=== PATIENT | male | born 1980 | race Caucasian/White ===

== ENCOUNTER 2023-01-17 09:44 | Outpatient (AMB) | payer OTHER, SELFPAY ==
[2023-01-17 09:51] VITALS: BP 134/80; PULSE 102; O2SAT 95; BMI 36.8
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
== END 2023-01-17 10:30 | disposition home or self-care (01) ==
PROVIDERS: PCP Family Medicine; Visit Provider Family Medicine
DX: M48.00 Spinal stenosis, site unspecified (principal); V89.2XXA Person injured in unspecified motor-vehicle accident, traffic, initial encounter; Z87.81 Personal history of (healed) traumatic fracture; F17.200 Nicotine dependence, unspecified, uncomplicated; R91.1 Solitary pulmonary nodule; R59.1 Generalized enlarged lymph nodes; R05.3 Chronic cough
CPT/HCPCS: 99214

== ENCOUNTER → 2023-08-04 11:24 | Outpatient (AMB) | payer OTHER, SELFPAY ==
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
[2023-08-04 11:41] VITALS: BP 132/76; PULSE 77; TEMP 36.8; O2SAT 96; BMI 34.9
== END ==
PROVIDERS: PCP Family Medicine; Visit Provider Physician Assistant
DX: M54.2 Cervicalgia (principal); G44.52 New daily persistent headache (NDPH); H53.8 Other visual disturbances
CPT/HCPCS: 99214

== ENCOUNTER 2023-08-04 12:53 | Outpatient (REF) | payer OTHER, SELFPAY ==
[2023-08-04 14:04] LABS: MANUAL DIFF FLAG NO
[2023-08-04 14:22] LABS: Basophils Absolute Auto 0.1 X10*3/uL (0.0-0.2); Basophils Percent Auto 0.7 % (0-2); Eosinophils Absolute Auto 0.2 X10*3/uL (0.0-0.4); Eosinophils Percent Auto 3.5 % (0-4); Hematocrit 43.7 % (42.0-52.0); Hemoglobin 14.6 g/dl (14.0-18.0); Imm Gran Abs Auto 0.02 X10*3/uL (0.00-0.03); Imm Gran Pct Auto 0.3 % (0.0-0.4); Lymphocytes Absolute Auto 2.9 X10*3/uL (1.2-4.9); Lymphocytes Percent Auto 41.8 % (20-40); Mean Corpuscular HGB Conc 33.4 g/dl (31.0-36.0); Mean Corpuscular Hemoglobin 28.7 pg (27.0-33.0); Mean Corpuscular Volume 85.9 fL (80.0-98.0); Mean Platelet Volume 9.4 fL (9.4-12.4); Monocytes Absolute Auto 0.6 X10*3/uL (0.1-1.2); Neutrophils Absolute Auto 3.1 x10*3/uL (2.0-8.3); Neutrophils Percent Auto 45.7 % (45-73); Platelet Count 332 X10*3/uL (160-400); Red Blood Count 5.09 X10*6/uL (4.60-5.80); Red Cell Distribution Width 15.5 % (11.0-16.0); White Blood Count 6.8 X10*3/uL (4.8-10.8)
[2023-08-04 14:39] LABS: Alanine Aminotransferase 20 U/L (0-40); Albumin Level 4.4 g/dL (3.5-5.0); Alkaline Phosphatase 116 U/L (39-117); Anion Gap 14 (12-20); Aspartate Amino Transferase 17 U/L (5-37); Bilirubin Total 0.4 mg/dL (0.0-1.0); Blood Urea Nitrogen 14 mg/dL (9-16); Calcium 9.3 mg/dL (8.4-10.2); Carbon Dioxide 24 mmol/L (22-29); Chloride 109 mmol/L (96-108); Estimated Glomerular Filt Rate > 60; Glucose Fasting 92 mg/dL (60-99); Magnesium 2.2 mg/dL (1.6-2.6); Potassium 4.1 mmol/L (3.3-5.1); Sodium 143 mmol/L (135-145); Total Protein 7.5 g/dL (6.5-8.0)
[2023-08-04 14:45] LABS: TSH reflex Free T4 1.04 uIU/mL (0.32-4.0)
[2023-08-04 14:54] LABS: Vitamin B12 261 pg/mL (200-900)
[2023-08-05 22:33] LABS: Lyme Abs Screen <0.90 index
== END 2023-08-04 12:54 | disposition home or self-care (01) ==
LOC: HO.WFDLDS 12:53
PROVIDERS: Visit Provider Physician Assistant
DX: G44.52 New daily persistent headache (NDPH) (principal); M54.2 Cervicalgia; H53.8 Other visual disturbances
CPT/HCPCS: 36415; 80053; 82607; 82746; 83735; 84443; 85025; 86617; 86618

== ENCOUNTER 2023-09-07 08:18 | Outpatient (AMB) | payer OTHER, SELFPAY ==
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
[2023-09-07 08:47] VITALS: BP 156/102; PULSE 91; RESP 16; TEMP 36.7; O2SAT 97; BMI 35.6
[2023-09-07 08:59] VITALS: BP 159/88
== END 2023-09-07 09:48 | disposition home or self-care (01) ==
PROVIDERS: PCP Family Medicine; Visit Provider Physician Assistant
DX: R07.89 Other chest pain (principal); F17.290 Nicotine dependence, other tobacco product, uncomplicated; R06.2 Wheezing; E53.8 Deficiency of other specified B group vitamins; G44.52 New daily persistent headache (NDPH)
CPT/HCPCS: 93000; 99214; G2211

== ENCOUNTER 2023-09-23 10:14 | Outpatient (AMB) | payer OTHER, SELFPAY ==
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
[2023-09-23 10:17] VITALS: BP 120/78; PULSE 81; O2SAT 98; BMI 34.8
== END 2023-09-23 11:22 | disposition home or self-care (01) ==
PROVIDERS: PCP Family Medicine; Referring Provider Physician Assistant; Visit Provider Nurse Practitioner Family
DX: R06.00 Dyspnea, unspecified (principal); F17.200 Nicotine dependence, unspecified, uncomplicated; Z91.09 Other allergy status, other than to drugs and biological substances
CPT/HCPCS: 99204

== ENCOUNTER → 2023-09-23 10:14 | Outpatient (BNVA) | payer OTHER, SELFPAY | PROVIDERS: PCP Family Medicine; Referring Provider Physician Assistant; Visit Provider Nurse Practitioner Family ==

== ENCOUNTER 2023-10-05 14:42 | Outpatient (AMB) | payer OTHER, SELFPAY ==
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
[2023-10-05 15:22] VITALS: BP 162/97; PULSE 89; RESP 16; O2SAT 97; BMI 35.2
[2023-10-05 15:33] VITALS: BP 137/100
[2023-10-05 17:00] VITALS: BP 136/82
== END 2023-10-05 16:28 | disposition home or self-care (01) ==
PROVIDERS: PCP Family Medicine; Visit Provider Physician Assistant
DX: G44.52 New daily persistent headache (NDPH) (principal); M54.9 Dorsalgia, unspecified; M54.2 Cervicalgia; R03.0 Elevated blood-pressure reading, without diagnosis of hypertension
CPT/HCPCS: 99214; G2211

== ENCOUNTER 2023-11-08 08:57 | Outpatient (AMB) | payer OTHER, SELFPAY ==
[2023-11-08 09:02] VITALS: BP 126/74; PULSE 85; O2SAT 97; BMI 35.4
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
== END 2023-11-08 09:41 | disposition home or self-care (01) ==
PROVIDERS: PCP Family Medicine; Visit Provider Nurse Practitioner Family
DX: R06.00 Dyspnea, unspecified (principal); F17.200 Nicotine dependence, unspecified, uncomplicated; Z91.09 Other allergy status, other than to drugs and biological substances; R59.1 Generalized enlarged lymph nodes
CPT/HCPCS: 99214

== ENCOUNTER → 2023-11-08 08:57 | Outpatient (BNVA) | payer OTHER, SELFPAY | PROVIDERS: PCP Family Medicine; Visit Provider Nurse Practitioner Family ==

== ENCOUNTER 2023-11-24 08:21 | Outpatient (AMB) | payer OTHER, SELFPAY ==
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
[2023-11-24 08:45] VITALS: BP 128/98; PULSE 81; RESP 16; O2SAT 95; BMI 36.7
[2023-11-24 08:51] VITALS: BP 142/98
== END 2023-11-24 09:27 | disposition home or self-care (01) ==
PROVIDERS: PCP Family Medicine; Visit Provider Physician Assistant
DX: K21.00 Gastro-esophageal reflux disease with esophagitis, without bleeding (principal); I10 Essential (primary) hypertension

== ENCOUNTER → 2023-11-24 08:21 | Outpatient (BNVA) | payer OTHER, SELFPAY | PROVIDERS: PCP Family Medicine; Visit Provider Physician Assistant | DX: K21.00 Gastro-esophageal reflux disease with esophagitis, without bleeding (principal); I10 Essential (primary) hypertension | CPT/HCPCS: 96127 ==

== ENCOUNTER 2023-12-21 07:53 | Outpatient (REF) | payer OTHER, SELFPAY ==
[2023-12-21 12:20] LABS: Anion Gap 11 (12-20); Blood Urea Nitrogen 9 mg/dL (9-16); Calcium 9.4 mg/dL (8.4-10.2); Carbon Dioxide 25 mmol/L (22-29); Chloride 109 mmol/L (96-108); Estimated Glomerular Filt Rate > 60; Glucose Random 91 mg/dL (60-115); Potassium 4.1 mmol/L (3.3-5.1); Sodium 141 mmol/L (135-145)
== END 2023-12-21 07:54 | disposition home or self-care (01) ==
LOC: HO.WFDLDS 07:53
PROVIDERS: Visit Provider Physician Assistant
DX: M05.79 Rheumatoid arthritis with rheumatoid factor of multiple sites without organ or systems involvement (principal); M19.90 Unspecified osteoarthritis, unspecified site; I10 Essential (primary) hypertension
CPT/HCPCS: 36415; 80048

== ENCOUNTER 2023-12-21 08:00 | Outpatient (AMB) | payer OTHER, SELFPAY ==
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
[2023-12-21 08:33] VITALS: BP 120/86; PULSE 67; O2SAT 98; BMI 35.7
== END 2023-12-21 09:16 | disposition home or self-care (01) ==
PROVIDERS: PCP Family Medicine; Visit Provider Physician Assistant
DX: M05.79 Rheumatoid arthritis with rheumatoid factor of multiple sites without organ or systems involvement (principal); M19.90 Unspecified osteoarthritis, unspecified site; I10 Essential (primary) hypertension

== ENCOUNTER 2024-01-25 10:10 | Outpatient (AMB) | payer OTHER, SELFPAY ==
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
[2024-01-25 10:19] VITALS: BP 126/82; PULSE 79; O2SAT 94; BMI 35.2
== END 2024-01-25 10:52 | disposition home or self-care (01) ==
PROVIDERS: PCP Family Medicine; Visit Provider Physician Assistant
DX: M05.79 Rheumatoid arthritis with rheumatoid factor of multiple sites without organ or systems involvement (principal); I10 Essential (primary) hypertension; M19.90 Unspecified osteoarthritis, unspecified site

== ENCOUNTER → 2024-01-25 10:10 | Outpatient (BNVA) | payer OTHER, SELFPAY | PROVIDERS: PCP Family Medicine; Visit Provider Physician Assistant ==

== ENCOUNTER 2024-03-01 13:33 | Outpatient (AMB) | payer OTHER, SELFPAY ==
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
[2024-03-01 13:49] VITALS: BP 126/86; PULSE 65; O2SAT 96; BMI 35.0
== END 2024-03-01 14:11 | disposition home or self-care (01) ==
PROVIDERS: PCP Family Medicine; Visit Provider Physician Assistant
DX: R03.0 Elevated blood-pressure reading, without diagnosis of hypertension (principal); M05.79 Rheumatoid arthritis with rheumatoid factor of multiple sites without organ or systems involvement; M19.90 Unspecified osteoarthritis, unspecified site

== ENCOUNTER → 2024-03-01 13:33 | Outpatient (BNVA) | payer OTHER, SELFPAY | PROVIDERS: PCP Family Medicine; Visit Provider Physician Assistant | DX: R03.0 Elevated blood-pressure reading, without diagnosis of hypertension (principal); M05.79 Rheumatoid arthritis with rheumatoid factor of multiple sites without organ or systems involvement; M19.90 Unspecified osteoarthritis, unspecified site | CPT/HCPCS: 96127 ==

== ENCOUNTER 2024-06-14 15:02 | Outpatient (AMB) | payer OTHER, SELFPAY ==
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
[2024-06-14 15:17] VITALS: BP 138/72; PULSE 83; RESP 16; TEMP 36.7; O2SAT 93; BMI 36.2
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
== END 2024-06-14 15:36 | disposition home or self-care (01) ==
LOC: HO.HMCFM 15:03
PROVIDERS: PCP Physician Assistant; Visit Provider Physician Assistant
DX: R10.31 Right lower quadrant pain (principal); M19.90 Unspecified osteoarthritis, unspecified site; M05.79 Rheumatoid arthritis with rheumatoid factor of multiple sites without organ or systems involvement; K21.00 Gastro-esophageal reflux disease with esophagitis, without bleeding

== ENCOUNTER → 2024-06-14 15:02 | Outpatient (BNVA) | payer OTHER, SELFPAY | PROVIDERS: PCP Physician Assistant; Visit Provider Physician Assistant | DX: Z13.89 Encounter for screening for other disorder (principal) ==

== ENCOUNTER 2024-07-10 08:17 | Outpatient (REF) | payer OTHER, SELFPAY ==
--- OUTSIDE RECORDS SUMMARY | 2024-07-10 08:25 | XMS_ITS | Clinical Summary ---
Author Organization [facility] Address [address] [place] [phone] Phone Care Team Providers Care Supervisor Turkey Farm Name Role Phone Sami Pitt MD Primary [...] this topic Medical Devices Implanted Type Area Mine Geologist Device Identifier Shelf Expiration Date Model / Serial / Lot Spinal Hardware Spinal Hardware N/A: Back Insurance [facility] Care Teams Supervisor Turkey Farm Relationship Specialty Start Date End Date Sami Pitt MD [address] [place] [address] Dr Robert MA PCP - General Family Medicine 01/17/24
[2024-07-10 11:24] LABS: MANUAL DIFF FLAG NO
[2024-07-10 11:30] LABS: Basophils Absolute Auto 0.1 X10*3/uL (0.0-0.2); Basophils Percent Auto 0.8 % (0-2); Eosinophils Absolute Auto 0.3 X10*3/uL (0.0-0.4); Eosinophils Percent Auto 4.4 % (0-4); Hematocrit 43.8 % (42.0-52.0); Hemoglobin 14.8 g/dl (14.0-18.0); Imm Gran Abs Auto 0.03 X10*3/uL (0.00-0.03); Imm Gran Pct Auto 0.4 % (0.0-0.4); Lymphocytes Absolute Auto 2.1 X10*3/uL (1.2-4.9); Lymphocytes Percent Auto 28.5 % (20-40); Mean Corpuscular HGB Conc 33.8 g/dl (31.0-36.0); Mean Corpuscular Hemoglobin 29.8 pg (27.0-33.0); Mean Corpuscular Volume 88.3 fL (80.0-98.0); Mean Platelet Volume 9.6 fL (9.4-12.4); Monocytes Absolute Auto 0.7 X10*3/uL (0.1-1.2); Monocytes Percent Auto 9.1 % (2-11); Neutrophils Absolute Auto 4.1 x10*3/uL (2.0-8.3); Neutrophils Percent Auto 56.8 % (45-73); Platelet Count 263 X10*3/uL (160-400); Red Blood Count 4.96 X10*6/uL (4.60-5.80); Red Cell Distribution Width 14.7 % (11.0-16.0); White Blood Count 7.2 X10*3/uL (4.8-10.8)
[2024-07-10 12:07] LABS: Prostate Specific Antigen Scr 2.32 ng/mL (<0.05-4.0)
[2024-07-10 12:24] LABS: TSH reflex Free T4 1.64 uIU/mL (0.32-4.0)
[2024-07-10 12:30] LABS: Alanine Aminotransferase 39 U/L (0-40); Albumin Level 4.2 g/dL (3.5-5.0); Anion Gap 12 (12-20); Aspartate Amino Transferase 38 U/L (5-37); Bilirubin Total 0.5 mg/dL (0.0-1.0); Blood Urea Nitrogen 10 mg/dL (9-16); Carbon Dioxide 25 mmol/L (22-29); Chloride 108 mmol/L (96-108); Cholesterol 162 mg/dL (<200); Estimated Glomerular Filt Rate > 60; Glucose Random 92 mg/dL (60-115); HDL Cholesterol 28 mg/dL (>40); LDL Cholesterol Calculated 92 mg/dL (<100); Potassium 3.8 mmol/L (3.3-5.1); Sodium 141 mmol/L (135-145); Total Protein 7.2 g/dL (6.5-8.0); Triglycerides 211 mg/dL (<150)
[2024-07-10 12:41] LABS: Alkaline Phosphatase 119 U/L (39-117)
== END 2024-07-10 08:18 | disposition home or self-care (01) ==
LOC: HO.WFDLDS 08:17
PROVIDERS: Visit Provider Physician Assistant
DX: M05.79 Rheumatoid arthritis with rheumatoid factor of multiple sites without organ or systems involvement (principal); M19.90 Unspecified osteoarthritis, unspecified site; I10 Essential (primary) hypertension; R03.0 Elevated blood-pressure reading, without diagnosis of hypertension; Z01.89 Encounter for other specified special examinations; Z12.5 Encounter for screening for malignant neoplasm of prostate
CPT/HCPCS: 36415; 80053; 80061; 84153; 84443; 85025

== ENCOUNTER 2024-07-12 08:12 | Outpatient (AMB) | payer OTHER, SELFPAY ==
--- OUTSIDE RECORDS SUMMARY | 2024-07-12 08:15 | XMS_ITS | Clinical Summary ---
Author Organization [facility] Address [address] [place] [phone] Phone Care Team Providers Care Farmworker Vegetable Name Role Phone Sami Pitt MD Primary [...] this topic Medical Devices Implanted Type Area Manager Education Device Identifier Shelf Expiration Date Model / Serial / Lot Spinal Hardware Spinal Hardware N/A: Back Insurance [facility] Care Teams Farmworker Vegetable Relationship Specialty Start Date End Date Sami Pitt MD [address] [place] [address] Dr Robert MA PCP - General Family Medicine 01/17/24
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
[2024-07-12 08:23] VITALS: BP 134/82; PULSE 86; RESP 18; O2SAT 96; BMI 36.7
== END 2024-07-12 09:00 | disposition home or self-care (01) ==
LOC: HO.HMCFM 08:12
PROVIDERS: PCP Physician Assistant; Visit Provider Physician Assistant
DX: M54.9 Dorsalgia, unspecified (principal); G89.29 Other chronic pain; R20.2 Paresthesia of skin; R10.31 Right lower quadrant pain; E53.8 Deficiency of other specified B group vitamins

== ENCOUNTER → 2024-07-12 08:12 | Outpatient (BNVA) | payer OTHER, SELFPAY | PROVIDERS: PCP Physician Assistant; Visit Provider Physician Assistant ==

== ENCOUNTER 2024-07-27 08:19 | Outpatient (REF) | payer OTHER, SELFPAY ==
--- NOTE | ~2024-07-27 | US_ITS ---
EXAMINATION: US ABDOMEN HISTORY: R10.31 - Right lower quadrant pain TECHNIQUE: Real-time grayscale ultrasound imaging of the abdomen was performed and images were reviewed. COMPARISON: There are no prior studies available for comparison. FINDINGS: Liver: The right lobe of the liver measures 21.7 cm in size. The left lobe of the liver measures 15.6 cm in size. The liver demonstrates increased echotexture, consistent with steatosis. No focal mass or intrahepatic biliary ductal dilatation is identified. There is normal hepatopedal flow in the portal vein. Gallbladder and biliary tree: The gallbladder is unremarkable, without evidence of calculi, wall thickening, or pericholecystic fluid. There is no sonographic Martinez sign. The common bile duct is not visualized. Kidneys: The right kidney measures 11.5 cm in length. The left kidney measures 12.6 cm in length. The kidneys are unremarkable, without evidence of masses, hydronephrosis, or calculi. Pancreas: The pancreas is obscured by bowel gas. Spleen: The spleen is enlarged, measuring 13.5 cm in length. Abdominal aorta and inferior vena cava: The visualized portions of the abdominal aorta and inferior vena cava are normal in caliber. There is no free fluid in the abdomen. The patient reports pain inferior to the umbilicus. No sonographic abnormality is seen in this region. US/US abdomen complete IMPRESSION: Hepatosplenomegaly and hepatic steatosis. No sonographic abnormality is seen inferior to the umbilicus where the patient reports pain. If further imaging is desired, CT could be performed. Electronically signed by: Janes Tate MD 07/27/2024 08:54 AM EDT
--- OUTSIDE RECORDS SUMMARY | 2024-07-27 08:21 | XMS_ITS | Clinical Summary ---
Author Organization [facility] Address [address] [place] [phone] Phone Care Team Providers Care Chlorine Cell Tender Name Role Phone Sami Pitt MD Primary [...] this topic Medical Devices Implanted Type Area Boat Garnisher Device Identifier Shelf Expiration Date Model / Serial / Lot Spinal Hardware Spinal Hardware N/A: Back Insurance [facility] Care Teams Chlorine Cell Tender Relationship Specialty Start Date End Date Sami Pitt MD [address] [place] [address] Dr Robert MA PCP - General Family Medicine 01/17/24
== END 2024-07-27 08:20 | disposition home or self-care (01) ==
LOC: HO.US 08:19
PROVIDERS: PCP Family Medicine; Visit Provider Physician Assistant
DX: R10.31 Right lower quadrant pain (principal); K21.00 Gastro-esophageal reflux disease with esophagitis, without bleeding
CPT/HCPCS: 76700

== ENCOUNTER → 2024-07-27 08:21 | Outpatient (BNV) | payer OTHER, SELFPAY | PROVIDERS: PCP Family Medicine; Visit Provider Radiology Diagnostic Radiology | DX: R16.2 Hepatomegaly with splenomegaly, not elsewhere classified (principal); K76.0 Fatty (change of) liver, not elsewhere classified | CPT/HCPCS: 76700 ==

== ENCOUNTER 2024-08-21 13:15 | Outpatient (AMB) | payer OTHER, SELFPAY ==
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
[2024-08-21 13:30] VITALS: BP 138/82; PULSE 77; BMI 35.8
--- OUTSIDE RECORDS SUMMARY | 2024-08-21 15:11 | XMS_ITS | Clinical Summary ---
Author Organization [facility] Address [address] [place] [phone] Phone Care Team Providers Care Manager Coding Name Role Phone Sami Pitt MD Primary [...] 74 01/17/2024 9:37 AM EST Temperature 36.7 C (98.1 F) 01/17/2024 9:37 AM EST Respiratory Rate 16 01/17/2024 9:30 AM EST [...] this topic Medical Devices Implanted Type Area Soda Tester Device Identifier Shelf Expiration Date Model / Serial / Lot Spinal Hardware Spinal Hardware N/A: Back Insurance [facility] Care Teams Manager Coding Relationship Specialty Start Date End Date Sami Pitt MD [address] [place] [address] Dr Robert MA PCP - General Family Medicine 01/17/24
== END 2024-08-21 13:51 | disposition home or self-care (01) ==
LOC: HO.HGS 13:16
PROVIDERS: PCP Physician Assistant; Referring Provider Physician Assistant; Visit Provider Surgery
DX: R10.31 Right lower quadrant pain (principal)
CPT/HCPCS: 99204

== ENCOUNTER 2024-09-06 11:10 | Outpatient (REF) | payer OTHER, SELFPAY ==
--- OUTSIDE RECORDS SUMMARY | 2024-09-06 11:55 | XMS_ITS | Clinical Summary ---
Author Organization [facility] Address [address] [place] [phone] Phone Care Team Providers Care Steel Grinder Name Role Phone Sami Pitt MD Primary [...] 5 Years) and At-Risk Patients (6 to 49 Years) (1 of 2 - PCV) 1997 COVID-19 Vaccine (3 - Modern a risk series) 04/03/2021 03/06/2021, 02/04/2021 Cholesterol Screening (Lipid Panel) 12/30/2023 Colorectal Cancer Screening: Colonoscopy 12/30/2023 Depression Screening 12/30/2023 HIV Screening 12/30/2023 Hepatitis C Screening 12/30/2023 Social Influencers of Health Screening 12/30/2023 Influenza Vaccine (#1) 2024 HIB Vaccines Aged Out No longer [...] this topic Medical Devices Implanted Type Area Director Of State Device Identifier Shelf Expiration Date Model / Serial / Lot Spinal Hardware Spinal Hardware N/A: Back Insurance [facility] Care Teams Steel Grinder Relationship Specialty Start Date End Date Sami Pitt MD [address] [place] [address] Dr Robert MA PCP - General Family Medicine 01/17/24
[2024-09-06 16:55] LABS: Anion Gap 11 (12-20); Blood Urea Nitrogen 10 mg/dL (9-16); Calcium 9.0 mg/dL (8.4-10.2); Carbon Dioxide 25 mmol/L (22-29); Chloride 106 mmol/L (96-108); Estimated Glomerular Filt Rate > 60; Iron 81 mcg/dL (45-160); Magnesium 2.3 mg/dL (1.6-2.6); Percent Iron Saturation 22 % (15-50); Potassium 3.9 mmol/L (3.3-5.1); Sodium 138 mmol/L (135-145); Total Iron Binding Capacity 369 mcg/dL (228-428); Unsaturated Iron Binding 288 ug/dL
[2024-09-06 16:56] LABS: Hemoglobin A1C 141.7846 umol/L; Total Hemoglobin (HGBA1C) 4364.0799 umol/L
[2024-09-06 16:58] LABS: Ferritin 79 ng/mL (20-250)
[2024-09-06 17:14] LABS: Folate 8.7 ng/mL (> or = 4.0); Vitamin B12 294 pg/mL (200-900)
[2024-09-07 10:58] LABS: Lyme Abs Screen <0.90 index
== END 2024-09-06 11:11 | disposition home or self-care (01) ==
LOC: HO.WFDLDS 11:10
PROVIDERS: Visit Provider Physician Assistant
DX: R73.01 Impaired fasting glucose (principal); R20.2 Paresthesia of skin; M54.9 Dorsalgia, unspecified; G89.29 Other chronic pain; E53.8 Deficiency of other specified B group vitamins; R10.31 Right lower quadrant pain
CPT/HCPCS: 36415; 80048; 82607; 82728; 82746; 83036; 83540; 83735; 86617; 86618

== ENCOUNTER 2024-09-18 10:09 | Outpatient (REF) | payer OTHER, SELFPAY ==
--- NOTE | 2024-09-18 10:12 | EMG_ITS ---
Please see the attached neurophysiology report MTDD
--- OUTSIDE RECORDS SUMMARY | 2024-09-18 11:11 | XMS_ITS | Clinical Summary ---
Author Organization [facility] Address [address] [place] [phone] Phone Care Team Providers Care Slasher Tender Name Role Phone Sami Pitt MD Primary Care Provider [phone] Allergies Active Allergy Reactions Criticality Noted Date [...] Panel) 12/30/2023 Colorectal Cancer Screening: Colonoscopy 12/30/2023 HIV Screening 12/30/2023 Hepatitis C Screening 12/30/2023 Social Influencers of Health Screening 12/30/2023 Depression Screening 02/29/2024 Influenza Vaccine (#1) 2024 HIB Vaccines Aged [...] this topic Medical Devices Implanted Type Area Drafter (Cad) Electronic Device Identifier Shelf Expiration Date Model / Serial / Lot Spinal Hardware Spinal Hardware N/A: Back Insurance [facility] Care Teams Slasher Tender Relationship Specialty Start Date End Date Sami Pitt MD [address] [place] [address] Dr Robert MA PCP - General Family Medicine 01/17/24
== END 2024-09-18 10:10 | disposition home or self-care (01) ==
LOC: HO.NEURO 10:09
PROVIDERS: PCP Physician Assistant; Visit Provider Physician Assistant
DX: R20.2 Paresthesia of skin (principal); M54.9 Dorsalgia, unspecified; G89.29 Other chronic pain; G62.9 Polyneuropathy, unspecified
CPT/HCPCS: 95886; 95913

== ENCOUNTER → 2024-09-18 10:12 | Outpatient (BNV) | payer OTHER, SELFPAY | PROVIDERS: PCP Physician Assistant; Visit Provider Psychiatry & Neurology Neurology | DX: G62.89 Other specified polyneuropathies (principal) | CPT/HCPCS: 95886; 95911 ==

== ENCOUNTER 2024-10-16 07:28 | Outpatient (REF) | payer OTHER, SELFPAY ==
--- NOTE | ~2024-10-16 | CT_ITS ---
CLINICAL HISTORY: R59.1 - Generalized enlarged lymph nodes CT chest with contrast Comparison: None provided Findings: The heart is normal size. The visualized thyroid is within normal limits. 16 mm right lower paratracheal lymph node. 8 mm right hilar lymph node. Nonenlarged bilateral axillary lymph nodes. No consolidation or effusion. No pneumothorax. Hepatic steatosis. No acute findings in the visualized upper abdomen. Posterior fusion from T6 through T8. No acute fracture. IMPRESSION: 1. No acute thoracic findings. 2. 16 mm right lower paratracheal lymph node and 8 mm right hilar lymph node, nonspecific. This document has been electronically signed by: Cyn Jansen MD on 10/17/2024 19:54:41
--- OUTSIDE RECORDS SUMMARY | 2024-10-16 07:29 | XMS_ITS | Clinical Summary ---
Author Organization [facility] Address [address] [place] [phone] Phone Care Team Providers Care Career Placement Services Counselor Name Role Phone Sami Pitt MD Primary [...] topic Medical Devices Implanted Type Area Director Media Device Identifier Shelf Expiration Date Model / Serial / Lot Spinal Hardware Spinal Hardware N/A: Back Insurance [facility] Care Teams Career Placement Services Counselor Relationship Specialty Start Date End Date Sami Pitt MD [address] [place] [address] Dr Robert MA PCP - General Family Medicine 01/17/24
[2024-10-16] MEDS: iohexoL 350 MG/ML 100 ML INFUS..BTL IV (08:19)
== END 2024-10-16 07:29 | disposition home or self-care (01) ==
LOC: HO.CT 07:28
PROVIDERS: PCP Physician Assistant; Visit Provider Nurse Practitioner Family
DX: R59.1 Generalized enlarged lymph nodes (principal)
CPT/HCPCS: 71260; Q9967

== ENCOUNTER → 2024-10-16 07:36 | Outpatient (BNV) | payer OTHER, SELFPAY | PROVIDERS: PCP Physician Assistant; Visit Provider Radiology Diagnostic Radiology | DX: R59.1 Generalized enlarged lymph nodes (principal) | CPT/HCPCS: 71260 ==

== ENCOUNTER 2024-10-18 08:28 | Outpatient (AMB) | payer OTHER, SELFPAY ==
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
[2024-10-18 08:36] VITALS: BP 141/83; PULSE 83; RESP 16; TEMP 36.6; O2SAT 95; BMI 35.9
[2024-10-18 08:43] VITALS: BP 141/77
--- OUTSIDE RECORDS SUMMARY | 2024-10-18 09:21 | XMS_ITS | Clinical Summary ---
Author Organization [facility] Address [address] [place] [phone] Phone Care Team Providers Care Engraver Jewelry Name Role Phone Sami Pitt MD Primary [...] this topic Medical Devices Implanted Type Area Wood Lather Device Identifier Shelf Expiration Date Model / Serial / Lot Spinal Hardware Spinal Hardware N/A: Back Insurance [facility] Care Teams Engraver Jewelry Relationship Specialty Start Date End Date Sami Pitt MD [address] [place] [address] Dr Robert MA PCP - General Family Medicine 01/17/24
== END 2024-10-18 09:15 | disposition home or self-care (01) ==
LOC: HO.HMCFM 08:28
PROVIDERS: PCP Physician Assistant; Visit Provider Physician Assistant
DX: M54.9 Dorsalgia, unspecified (principal); M05.79 Rheumatoid arthritis with rheumatoid factor of multiple sites without organ or systems involvement; M19.90 Unspecified osteoarthritis, unspecified site; R03.0 Elevated blood-pressure reading, without diagnosis of hypertension; K21.00 Gastro-esophageal reflux disease with esophagitis, without bleeding

== ENCOUNTER 2024-10-18 08:28 | Outpatient (REF) | payer OTHER, SELFPAY ==
[2024-10-18 11:31] LABS: MANUAL DIFF FLAG NO
[2024-10-18 11:41] LABS: Hematocrit 46.0 % (42.0-52.0); Hemoglobin 15.4 g/dl (14.0-18.0); Imm Gran Abs Auto 0.03 X10*3/uL (0.00-0.03); Imm Gran Pct Auto 0.4 % (0.0-0.4); Lymphocytes Absolute Auto 2.3 X10*3/uL (1.2-4.9); Mean Corpuscular HGB Conc 33.5 g/dl (31.0-36.0); Mean Corpuscular Hemoglobin 29.4 pg (27.0-33.0); Mean Corpuscular Volume 87.8 fL (80.0-98.0); NRBC Abs Auto 0.000 X10*3/uL (0.0-0.012); NRBC Pct Auto 0.0 /100WBC (0.0-0.2); Platelet Count 318 X10*3/uL (160-400); Red Blood Count 5.24 X10*6/uL (4.60-5.80); White Blood Count 7.9 X10*3/uL (4.8-10.8)
[2024-10-18 12:16] LABS: Alanine Aminotransferase 37 U/L (0-40); Albumin Level 4.6 g/dL (3.5-5.0); Alkaline Phosphatase 131 U/L (39-117); Anion Gap 10 (12-20); Aspartate Amino Transferase 29 U/L (5-37); Blood Urea Nitrogen 10 mg/dL (9-16); Calcium 9.2 mg/dL (8.4-10.2); Carbon Dioxide 27 mmol/L (22-29); Chloride 106 mmol/L (96-108); Cholesterol 187 mg/dL (<200); Estimated Glomerular Filt Rate > 60; HDL Cholesterol 27 mg/dL (>40); Potassium 4.2 mmol/L (3.3-5.1); Sodium 139 mmol/L (135-145); Total Protein 7.7 g/dL (6.5-8.0); Triglycerides 270 mg/dL (<150)
== END 2024-10-18 08:29 | disposition home or self-care (01) ==
LOC: HO.WFDLDS 08:28
PROVIDERS: Nurse Practitioner Family; PCP Physician Assistant; Visit Provider Physician Assistant
DX: K21.00 Gastro-esophageal reflux disease with esophagitis, without bleeding (principal); M05.79 Rheumatoid arthritis with rheumatoid factor of multiple sites without organ or systems involvement; M19.90 Unspecified osteoarthritis, unspecified site; M54.9 Dorsalgia, unspecified; R03.0 Elevated blood-pressure reading, without diagnosis of hypertension; Z12.5 Encounter for screening for malignant neoplasm of prostate; Z91.09 Other allergy status, other than to drugs and biological substances
CPT/HCPCS: 36415; 80053; 80061; 82785; 84153; 84443; 85025

== ENCOUNTER 2024-10-26 07:49 | Outpatient (AMB) | payer OTHER, SELFPAY ==
--- OUTSIDE RECORDS SUMMARY | 2024-10-26 07:52 | XMS_ITS | Clinical Summary ---
Author Organization [facility] Address [address] [place] [phone] Phone Care Team Providers Care Office Supervisor Name Role Phone Sami Pitt MD Primary [...] this topic Medical Devices Implanted Type Area Window Draper Device Identifier Shelf Expiration Date Model / Serial / Lot Spinal Hardware Spinal Hardware N/A: Back Insurance [facility] Care Teams Office Supervisor Relationship Specialty Start Date End Date Sami Pitt MD [address] [place] [address] Dr Robert MA PCP - General Family Medicine 01/17/24
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
[2024-10-26 08:09] VITALS: BP 136/92; PULSE 74; O2SAT 98; BMI 36.5
== END 2024-10-26 08:45 | disposition home or self-care (01) ==
LOC: HO.HGI 07:50
PROVIDERS: PCP Physician Assistant; Visit Provider Nurse Practitioner Family
DX: Z01.818 Encounter for other preprocedural examination (principal); Z12.11 Encounter for screening for malignant neoplasm of colon; K21.00 Gastro-esophageal reflux disease with esophagitis, without bleeding; R10.13 Epigastric pain; R14.0 Abdominal distension (gaseous); R10.9 Unspecified abdominal pain
CPT/HCPCS: 99204

== ENCOUNTER 2024-10-26 07:49 | Outpatient (REF) | payer OTHER, SELFPAY ==
[2024-10-26 09:48] LABS: Alanine Aminotransferase 40 U/L (0-40); Albumin Level 4.5 g/dL (3.5-5.0); Alkaline Phosphatase 138 U/L (39-117); Aspartate Amino Transferase 32 U/L (5-37); Gamma Glutamyl Transpeptidase 56 U/L (11-51); Lipase 38 U/L (8-78); Total Protein 7.3 g/dL (6.5-8.0)
[2024-10-26 10:46] LABS: Parathyroid Hormone Intact 127.9 pg/mL (8.7-77.1)
[2024-10-30 15:48] LABS: Vitamin D 25-OH, D2 <4 ng/mL; Vitamin D 25-OH, D3 29 ng/mL; Vitamin D 25-OH, Total 29 ng/mL (30-100)
[2024-10-31 22:08] LABS: Transglutaminase Ab IgG <1.0 U/mL
== END 2024-10-26 07:50 | disposition home or self-care (01) ==
LOC: HO.LAB 07:49
PROVIDERS: Absent Provider Physician Assistant; PCP Physician Assistant; Visit Provider Nurse Practitioner Family
DX: Z12.11 Encounter for screening for malignant neoplasm of colon (principal); K21.00 Gastro-esophageal reflux disease with esophagitis, without bleeding; R10.13 Epigastric pain; R14.0 Abdominal distension (gaseous); R94.5 Abnormal results of liver function studies; E55.9 Vitamin D deficiency, unspecified
CPT/HCPCS: 36415; 80076; 82306; 82977; 83013; 83690; 83970; 84075; 86364

== ENCOUNTER 2024-11-14 09:20 | Outpatient (AMB) | payer OTHER, SELFPAY ==
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
[2024-11-14 09:28] VITALS: BP 148/90; PULSE 73; RESP 16; TEMP 36.6; O2SAT 97; BMI 36.2
[2024-11-14 09:37] VITALS: BP 140/88
--- OUTSIDE RECORDS SUMMARY | 2024-11-14 11:01 | XMS_ITS | Clinical Summary ---
Author Organization [facility] Address [address] [place] [phone] Phone Care Team Providers Care Biochemistry Professor Name Role Phone Sami Pitt MD Primary [...] this topic Medical Devices Implanted Type Area Purification Director Device Identifier Shelf Expiration Date Model / Serial / Lot Spinal Hardware Spinal Hardware N/A: Back Insurance [facility] Care Teams Biochemistry Professor Relationship Specialty Start Date End Date Sami Pitt MD [address] [place] [address] Dr Robert MA PCP - General Family Medicine 01/17/24
== END 2024-11-14 10:09 | disposition home or self-care (01) ==
LOC: HO.HMCFM 09:21
PROVIDERS: PCP Physician Assistant; Visit Provider Physician Assistant
DX: M25.511 Pain in right shoulder (principal); M05.79 Rheumatoid arthritis with rheumatoid factor of multiple sites without organ or systems involvement; E21.3 Hyperparathyroidism, unspecified; R59.0 Localized enlarged lymph nodes; I10 Essential (primary) hypertension

== ENCOUNTER 2024-11-26 11:04 | Outpatient (AMB) | payer OTHER, SELFPAY ==
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
[2024-11-26 11:17] VITALS: BP 122/64; PULSE 85; O2SAT 97; BMI 36.5
--- OUTSIDE RECORDS SUMMARY | 2024-11-26 12:35 | XMS_ITS | Clinical Summary ---
Author Organization [facility] Address [address] [place] [phone] Phone Care Team Providers Care Correctional Nurse Name Role Phone Sami Pitt MD Primary [...] this topic Medical Devices Implanted Type Area Hospitality Manager Device Identifier Shelf Expiration Date Model / Serial / Lot Spinal Hardware Spinal Hardware N/A: Back Insurance [facility] Care Teams Correctional Nurse Relationship Specialty Start Date End Date Sami Pitt MD [address] [place] [address] Dr Robert MA PCP - General Family Medicine 01/17/24
== END 2024-11-26 13:45 | disposition home or self-care (01) ==
LOC: HO.HPS 11:05
PROVIDERS: PCP Physician Assistant; Visit Provider Nurse Practitioner Family
DX: R06.00 Dyspnea, unspecified (principal); Z91.09 Other allergy status, other than to drugs and biological substances; R59.0 Localized enlarged lymph nodes; Z87.891 Personal history of nicotine dependence
CPT/HCPCS: 99214

== ENCOUNTER 2024-11-29 06:39 | Day surgery (SDC) | payer OTHER, SELFPAY ==
--- OUTSIDE RECORDS SUMMARY | 2024-11-19 13:15 | XMS_ITS | Clinical Summary ---
Author Organization [facility] Address [address] [place] [phone] Phone Care Team Providers Care Towel Hemmer Name Role Phone Sami Pitt MD Primary Care Provider [phone] Allergies Active Allergy Reactions Criticality Noted Date [...] this topic Medical Devices Implanted Type Area Blood Bank Business Manager Device Identifier Shelf Expiration Date Model / Serial / Lot Spinal Hardware Spinal Hardware N/A: Back Insurance [facility] Care Teams Towel Hemmer Relationship Specialty Start Date End Date Sami Pitt MD [address] [place] [address] Dr Robert MA PCP - General Family Medicine 01/17/24
[2024-11-27 14:46] VITALS: BMI 36.5
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
[2024-11-29 07:00] VITALS: BP 141/88; PULSE 78; RESP 14; TEMP 36.7; O2SAT 97; BMI 35.2
[2024-11-29] MEDS: Lactated Ringers 1,000 ML 100 ML IVCONT (07:09)
--- NOTE | 2024-11-29 08:27 | P.OPN-COLO_ITS ---
Colonoscopy Operative Note Operative Note Date of Service: 11/29/24 Narrative: Operative Information Procedure Description: EGD, Colonoscopy Indication: GERD and abdominal pain Anesthesia: MAC FLEXIBLE TRANSORAL UPPER GASTROINTESTINAL ENDOSCOPY AND COLONOSCOPY PROCEDURE NOTE UPPER ENDOSCOPY Consent: Indications for the procedure and potential complications of bleeding, perforation, reaction to medications and missed diagnosis were discussed with the patient and informed consent was obtained. Instrument: Olympus GIF H 190 J mid size upper endoscope Monitoring: Vital signs and clinical assessment, continuous EKG monitoring, Pulse oximetry, Carbon Dioxide monitoring and blood pressure monitoring were done throughout the procedure. Procedure: The patient was placed in the left lateral decubitis position and pre-procedure medications were administered and a bite block was placed. The endoscope was inserted into the mouth and advanced under direct vision to the third part of duodenum. A careful inspection was made as the upper endoscope was withdrawn including a retroflexed examination of the proximal stomach; Findings and interventions are described below. Findings: Larynx:normal Esophagus: GE junction at 42 cm, diaphragm hiatus at 44 cm, consistent with 2 cm sliding hiatal hernia with mild esophagitis noted at GEJ, bx taken from distal and proximal esophagus and balloon dilation done at UES and LES to 19 mm without tears seen Stomach: PAtchy erythema with erosions holly around pylorus area. Biopsies were obtained. Grade 2 flap valve on retroflexed examination of the cardia. Duodenum: bulbar duodenitis, bx taken Intervention: Biopsies as noted above, balloon dilation -no wire COLONOSCOPY Instrument: Olympus variable stiffness pediatric scope 190L--swapped to adult scope due to looping Colonoscopy Monitoring: Vital signs and clinical assessment, continuous EKG monitoring, Pulse oximetry, Carbon Dioxide monitoring and blood pressure monitoring were done throughout the procedure. Colon withdrawal time was 12 minutes. Procedure: The patient was placed in the left lateral decubitis position and pre-procedure medications were administered. After a digital rectal examination of the ano-rectum, the video colonoscope was inserted into the rectum and advanced through the colon to the cecum/TI. The colonoscope was slowly withdrawn in a retrograde panoramic fashion and the colon mucosa was carefully examined including a retroflexed view of the rectum. Findings and interventions are described below. Procedure Difficulty:moderate Findings: Terminal Ileum- erosive ileitis noted, moderate, bx taken Cecum:normal, bx taken Ascending Colon: normal, bx taken Transverse Colon -normal Descending Colon:normal Sigmoid Colon: normal, bx taken Rectum: Retroflexion with small internal hemorrhoids, grade I, bx taken Anorectum - normal Colon preparation: [place] Bowel Preparation Scale Right colon; 2 Transverse colon: 2 Left colon; 1-2 (0 = Unprepared colon segment with mucosa not seen due to solid stool that cannot be cleared. 1 = Portion of mucosa of the colon segment seen, but other areas of the colon segment not well seen due to staining, residual stool and/or opaque liquid. 2 = Minor amount of residual staining, small fragments of stool and/or opaque liquid, but mucosa of colon segment seen well. 3 = Entire mucosa of colon segment seen well with no residual staining, small fragments of stool or opaque liquid) Impression and Post Procedure Diagnosis: Endoscopy Findings: hiatal hernia erosive gastritis duodenitis esophagitis Colonoscopy Findings: erosive ileitis internal hemorrhoids Plan: Await Pathology results Repeat Colonoscopy in 3 years due to some areas of fair prep or earlier if clinically indicated High fiber diet leaflet avoid straining at stool, epsom salts and sitz bath, anusol supps or cream check nsaid hx, consider w/u for crohns Above findings were reviewed with the patient and relevant handouts were provided if indicated.
[2024-11-29 08:35] VITALS: BP 116/79; PULSE 94; RESP 18; TEMP 36.9; O2SAT 96
[2024-11-29 08:45] VITALS: BP 137/87; PULSE 94; RESP 18; O2SAT 96
[2024-11-29 09:00] VITALS: BP 114/87; PULSE 86; RESP 18; TEMP 36.2; O2SAT 96
== END 2024-11-29 09:28 | disposition home or self-care (01) ==
PROVIDERS: PCP Physician Assistant; Visit Provider Internal Medicine Gastroenterology
PROC: (CPT 45380; principal; 2024-11-29 07:30)
DX: Z12.11 Encounter for screening for malignant neoplasm of colon (principal); K52.89 Other specified noninfective gastroenteritis and colitis; K64.0 First degree hemorrhoids; K56.2 Volvulus; K21.00 Gastro-esophageal reflux disease with esophagitis, without bleeding; K29.60 Other gastritis without bleeding; K44.9 Diaphragmatic hernia without obstruction or gangrene; K29.80 Duodenitis without bleeding; R10.13 Epigastric pain; R14.0 Abdominal distension (gaseous); M06.9 Rheumatoid arthritis, unspecified
CPT/HCPCS: 45380; 43249; 43239; 88305; 88313; 88342; C1726; J2003; J2250; J2704; J3010

== ENCOUNTER → 2024-11-29 06:39 | Outpatient (BNV) | payer OTHER, SELFPAY | PROVIDERS: PCP Physician Assistant; Visit Provider Internal Medicine Gastroenterology | DX: R10.9 Unspecified abdominal pain (principal); K52.9 Noninfective gastroenteritis and colitis, unspecified; K64.0 First degree hemorrhoids; K20.90 Esophagitis, unspecified without bleeding; K29.00 Acute gastritis without bleeding; K29.80 Duodenitis without bleeding | CPT/HCPCS: 43239; 43249; 45380 ==

== ENCOUNTER 2024-12-13 09:51 | Outpatient (AMB) | payer OTHER, SELFPAY ==
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
[2024-12-13 10:00] VITALS: BP 108/56; PULSE 94; O2SAT 95; BMI 37.6
--- OUTSIDE RECORDS SUMMARY | 2024-12-13 11:32 | XMS_ITS | Clinical Summary ---
Author Organization [facility] Address [address] [place] [phone] Phone Care Team Providers Care Melon Packer Name Role Phone Sami Pitt MD Primary [...] 01/17/2024 7:27 AM EST Plan of Treatment Upcoming Encounters Date Type Department Care Team ([facility] st Contact Info) Description 12/17/2024 9:00 AM EDT Consult Thoracic Surgery - [place] [address] [place] [id number] Liz Arthur MD [address] [place] [address] Health Maintenance Due Date Last Done Comments Colorectal Cancer Screening: Colonoscopy 1978 DTaP,Tdap,and Td Vaccines (1 - Tdap) 1997 Hepatitis B Vaccines (1 of 3 - 19+ 3-dose series) 1997 Pneumococcal Vaccine: Pediatrics (0 to 5 Years) and At-Risk Patients (6 to 49 Years) (1 of 2 - PCV) 1997 Cholesterol Screening (Lipid Panel) 12/30/2023 HIV Screening 12/30/2023 Hepatitis C Screening 12/30/2023 Social Influencers of Health Screening 12/30/2023 Depression Screening 02/29/2024 COVID-19 Vaccine (3 - 2024-2 6 season) 2024 03/06/2021, 02/04/2021 Influenza Vaccine (#1) 2024 RSV Immunization Adult Patients (1 - 1-dose 75+ series) 2053 HIB Vaccines Aged Out No longer eligi [...] this topic Medical Devices Implanted Type Area Sheltered Workshop Executive Director Device Identifier Shelf Expiration Date Model / Serial / Lot Spinal Hardware Spinal Hardware N/A: Back Insurance [facility] [facility] Care Teams Melon Packer Relationship Specialty Start Date End Date Sami Pitt MD [address] [place] [address] Dr Almaraz DenverEDGAR PCP - General Family Medicine 01/17/24
== END 2024-12-13 10:31 | disposition home or self-care (01) ==
LOC: HO.ENCR 09:52
PROVIDERS: PCP Physician Assistant; Visit Provider Internal Medicine Endocrinology, Diabetes & Metabolism
DX: E21.3 Hyperparathyroidism, unspecified (principal)
CPT/HCPCS: 99204

== ENCOUNTER 2025-01-09 13:26 | Outpatient (AMB) | payer OTHER, SELFPAY ==
--- NOTE | 2025-01-09 13:30 | MHC.PC.OV ---
Vital Signs 01/09/25 13:34 Height 5 ft 5 in Weight 229 lb 4 oz BMI 38.1 BP 124/82 Blood Pressure Location Rt brachial Position Sitting Respiration 16 Pulse 89 Pulse Source Pulse Oximeter Temp 98.4 F Temp Source Oral Pulse Oximetry (%) 94 Oxygen Delivery Method Room Air Intake Visit Reasons: blood pressure and meds Intake Note: Blood pressure follow up. Needs referral to [facility]. [facility] does not take new insurance. Plans to have surgery once approved: bicep muscle repair, and biopsy of esophagus and aorta. Analysis Or Research Safety Inspector Required: No Allergies bee venom protein (honey bee) Allergy (Severe, Verified 01/09/25 13:34) Anaphylaxis celecoxib (From Celebrex) Allergy (Intermediate, Verified 01/09/25 13:34) Nausea scorpion venom Allergy (Intermediate, Verified 01/09/25 13:34) Shortness of Breath adalimumab (From Humira) Allergy (Mild, Verified 01/09/25 13:34) Shortness of Breath Medication List - Last Reconciled 01/09/25 by Faye Butcher PA-C albuterol sulfate 90 mcg/actuation 2 puffs inhalation Q4-6H PRN 30 days amlodipine 5 mg PO DAILY bisacodyl (Dulcolax (bisacodyl)) 20 mg (4 x 5 mg) PO ONCE 1 day clobetasol 0.05% 1 appl topical BID 2 weeks fluticasone furoate-vilanterol 100-25 mcg/dose (Breo Ellipta) 1 inh inhalation DAILY oxycodone 10 mg PO Q6H 28 days pantoprazole 40 mg PO DAILY polyethylene glycol 3350 (Miralax) 238 grams PO ONCE 1 day sucralfate 1 g PO BEDTIME sulfasalazine 1 g (2 x 500 mg) PO BID Tobacco use date assessed: 11/14/24 Dental Screening Dental Screen Date: 10/18/24 HPI blood pressure and meds HPI Details Patient is a 44-year-old male with a significant past medical history of rheumatoid arthritis, osteoarthritis, osteopenia, hypertension, chronic headaches, tobacco use presenting today for a follow up. Rheum: See previous note for additional detail regarding his previous RA management. He states that he just experiences significant pain and stiffness every day. He has trialed different NSAIDs, muscle relaxants and gabapentin. He either did not tolerate the medication or found it ineffective. Currently feeling relief with oxycodone 10 mg 4 times a day. He saw a team at [facility], Dr. 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 -he states his insurance changed and he is no longer to follow with the [facility] [place] and would like to see someone at [facility]. -he was recently seen by [facility] and told that he had a right biceps tendon rupture. This happened while he was working with an auger and injured his right arm. His insurance again, recently changed, and he now would like to follow up with [facility]. He states that he was told he needed surgery but it got canceled due to insurance changes. CV: He is on amlodipine 5 mg for bp management. He has been noticing cp and sob since end of October. He sometimes gets chest pain at rest. It is worse with exertion. He states it feels like a heaviness and sharpness. He does not get nausea with it. He has to stop and rest. He cannot walk more than a quarter mile. His father had NE around 40s. Mother had NE in early 50s. GI: He has a history of GERD with a esophagitis and recent dx of crohn's disease. He has a follow up with GI 01/29. Has not started sulfasalazine yet. PULM: Has been following with pulmonology and recently had a chest CT completed. It was noted to have a hilar lymph node, nonspecific and a paratracheal lymph node. He followed with thoracic surgery and was told that he does need to have biopsies. Denies any current cough or wheezing. He has been experiencing shortness on breath over the last month or 2. He did recently quit smoking. He does have a follow up scheduled with pulmonology Derm: Has noted a flaky, circular, slightly erythematous, very itchy spot on his left lower leg. It improved with clobetasol but did not fully resolve. [facility] Medical History Back pain Pulmonary nodule Rheumatoid arthritis GERD (gastroesophageal reflux disease) Osteopenia Osteoarthritis Hepatosplenomegaly Hilar lymphadenopathy Neuropathy Hyperparathyroidism HTN (hypertension) Spinal stenosis Surgical History H/O Spinal surgery Family History Father Diabetes Heart attack HTN (hypertension) Skin cancer Social History Housing: House Alcohol intake: current Alcohol intake frequency: a few times a month Patient Tobacco Use Status: Former Tobacco user Tobacco use type: Cigar Years Smoked: 32 e-Cigarette/Vaping Use: Never Used Second Hand Smoke Exposure: No Substance Use Type: Marijuana service: No Current occupational status: employed 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 Current occupational exposures/hazards: No Cognitive needs: No Hearing needs: No Vision needs: Yes (Patient wears glasses.) Questionnaire Thrive Questionnaire Date Thrive assessed: 03/01/24 I am a: Patient What is your living situation today?: I have a steady place to live Within the past 12 months, did the food you bought not last and you didn't have the money to get more?: Never true Within the past 12 months, did you worry whether your food would run out before you got money to buy more?: Never true Do you have trouble paying for medicines?: No Do you have trouble getting transportation to medical appointments?: No Do you have trouble paying your heating and electricity bill?: No Do you have trouble taking care of your child, family member or friend?: No Do you have trouble with day-to-day activities such as bathing, preparing meals, shopping, managing finances, etc.?: No Are you currently unemployed and looking for a job?: No Are you interested in more education?: No Please select the resources that you would like help with: None Currently or been in a relationship where the following occur: No concerns reported THRIVE Score: 0 WILMER-7 AMB Questionnaire WILMER-7 Date WILMER - 7 assessed: 09/07/23 Source: Developed by Drs. Janes Soares, Aurora Small, Joel Pisano and colleagues, with an educational kilo from [employer]. Physical exam (Primary Care) Vital Signs: Last Vital Signs Temp 98.4 F 01/09/25 13:34 Pulse 89 01/09/25 13:34 Resp 16 01/09/25 13:34 BP 124/82 01/09/25 13:34 Pulse Ox 94 01/09/25 13:34 Oxygen Delivery Method Room Air 01/09/25 13:34 BMI result Body Mass Index 38.1 Tobacco/Smoking Status: Tobacco use Status Tobacco use date assessed 11/14/24 01/09/25 13:32 Patient Tobacco Use Status Former Tobacco user 01/09/25 13:32 Tobacco use type Cigar 01/09/25 13:32 e-Cigarette/Vaping Use Never Used 01/09/25 13:32 Thrive Assessment: Date of Thrive Assessment Date Thrive assessed 03/01/24 01/09/25 13:32 Currently or been in a relationship where the following occur: No concerns reported Const Orientation/consciousness: patient oriented x3 HENMT Ears: hearing grossly normal bilaterally Neck Thyroid: Thyroid normal Lymphatic: no lymphadenopathy noted Resp Auscultation: clear to auscultation bilaterally Cardio Rate: regular rate Rhythm: regular rhythm Heart sounds: S1 normal heart sound present and S2 normal heart sound present GI Inspection: Yes normal to inspection Palpation (GI): Soft to palpation and Other GI palpation findings present (nontender, no cva tenderness) Auscultation: normoactive bowel sounds Rectal Exam - Male: Yes deferred Skin Other: There is a slightly erythematous, flat, circular lesion noted on the left lower leg. There is some flaking of the skin. Neuro General: patient oriented x3, gait normal and no focal motor deficits Results Reviewed Results Reviewed: Laboratory Tests 10/18/24 10/26/24 09:39 09:02 WBC 7.9 RBC 5.24 Hgb 15.4 Hct 46.0 Plt Count 318 Sodium 139 Potassium 4.2 Chloride 106 Carbon Dioxide 27 Anion Gap 10 L BUN 10 Creatinine 0.73 Estimated GFR > 60 Fasting Glucose 82 Total Bilirubin 0.4 Direct Bilirubin 0.1 GGT 56 H AST 32 ALT 40 Alkaline Phosphatase 138 H Alk Phos Bone Specific 16.0 Total Protein 7.3 Albumin 4.5 Triglycerides 270 H Cholesterol 187 LDL Cholesterol, Calc 106 H HDL Cholesterol 27 L Lipase 38 PSA Screen 1.28 25-OH Vitamin D Total 29 L PTH Intact 127.9 H Coding Level of Care Code Est Pt Level 4 (93513) Complex EM visit Add On G2211 Diagnoses Rupture of right biceps tendon S46.211A Hilar lymphadenopathy R59.0 HTN (hypertension) I10 Chest pain R07.9 Rheumatoid arthritis involving multiple sites with positive rheumatoid factor M05.79 Rheumatoid arthritis location: multiple sites Rheumatoid factor presence: with rheumatoid factor Crohn disease K50.90 Assessment & Plan Assessment & Plan (1) Rupture of right biceps tendon: Code(s): S46.211A - Strain of muscle, fascia and tendon of other parts of biceps, right arm, initial encounter Category: Medical Plan: [place] [facility] [place] (2) Hilar lymphadenopathy: Code(s): R59.0 - Localized enlarged lymph nodes Category: Medical Plan: following with thoracic surgery, Dr. Ward, for lymphadenopathy and is getting biopsy in the next 4-6 weeks. (3) HTN (hypertension): Code(s): I10 - Essential (primary) hypertension Category: Medical Plan: wnl continue amlodipine (4) Chest pain: Code(s): R07.9 - Chest pain, unspecified Category: Medical Plan: stress test ordered echo ordered has had recent lung imaging referral to cardiology Labs ordered today (5) Rheumatoid arthritis: Code(s): M06.9 - Rheumatoid arthritis, unspecified Category: Medical Qualifiers: Rheumatoid arthritis location: multiple sites Rheumatoid factor presence: with rheumatoid factor Qualified Code(s): M05.79 - Rheumatoid arthritis with rheumatoid factor of multiple sites without organ or systems involvement Plan: Referral to rheumatology (6) Crohn disease: Code(s): K50.90 - Crohn's disease, unspecified, without complications Category: Medical Plan: Recent diagnosis on his double endoscopy. Has follow up scheduled with GI. Advised to start the sulfasalazine Orders: Orders Complete Blood Count Auto Diff Today I10 - Essential (primary) hypertension, R07.9 - Chest pain, unspecified Comprehensive Bells. Panel Fast Today I10 - Essential (primary) hypertension, R07.9 - Chest pain, unspecified Hemoglobin A1c Today I10 - Essential (primary) hypertension, R07.9 - Chest pain, unspecified, R73.01 - Impaired fasting glucose Lipid Panel Today I10 - Essential (primary) hypertension, R07.9 - Chest pain, unspecified TSH reflex Free T4 Today I10 - Essential (primary) hypertension, R07.9 - Chest pain, unspecified CA echo transthoracic complete Today I10 - Essential (primary) hypertension, R07.9 - Chest pain, unspecified, Z82.49 - Family history of ischemic heart disease and other diseases of the circulatory system CA stress test Today I10 - Essential (primary) hypertension, M05.79 - Rheumatoid arthritis with rheumatoid factor of multiple sites without organ or systems involvement, R07.9 - Chest pain, unspecified, Z82.49 - Family history of ischemic heart disease and other diseases of the circulatory system NM cardiolite stress test Today I10 - Essential (primary) hypertension, R07.9 - Chest pain, unspecified, Z82.49 - Family history of ischemic heart disease and other diseases of the circulatory system Referrals Orthopedics Referral S46.211A - Strain of muscle, fascia and tendon of other parts of biceps, right arm, initial encounter Cardiology Referral I10 - Essential (primary) hypertension, R07.9 - Chest pain, unspecified, Z82.49 - Family history of ischemic heart disease and other diseases of the circulatory system Dermatology Referral K50.90 - Crohn's disease, unspecified, without complications, L30.9 - Dermatitis, unspecified, M05.79 - Rheumatoid arthritis with rheumatoid factor of multiple sites without organ or systems involvement Rheumatology Referral K50.90 - Crohn's disease, unspecified, without complications, M05.79 - Rheumatoid arthritis with rheumatoid factor of multiple sites without organ or systems involvement Medications: New triamcinolone acetonide 0.1% 1 appl topical BID 30 grams 1RF Discontinued clobetasol 0.05% Discontinued Reason: Doctor's Order 1 appl topical BID 2 weeks 60 grams 3RF
[2025-01-09 13:34] VITALS: BP 124/82; PULSE 89; RESP 16; TEMP 36.9; O2SAT 94; BMI 38.1
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
== END 2025-01-09 14:11 | disposition home or self-care (01) ==
LOC: HO.HMCFM 13:27
PROVIDERS: PCP Physician Assistant; Visit Provider Physician Assistant
DX: S46.211A Strain of muscle, fascia and tendon of other parts of biceps, right arm, initial encounter (principal); R59.0 Localized enlarged lymph nodes; I10 Essential (primary) hypertension; R07.9 Chest pain, unspecified; M05.79 Rheumatoid arthritis with rheumatoid factor of multiple sites without organ or systems involvement; K50.90 Crohn's disease, unspecified, without complications

== ENCOUNTER 2025-01-14 13:02 | Outpatient (AMB) | payer OTHER, SELFPAY ==
--- NOTE | 2025-01-14 13:08 | A.OFFVIS_ITS ---
Vital Signs 01/14/25 13:31 Height 5 ft 5 in Weight 229 lb BMI 38.1 Intake Visit Reasons: ED FU- Strain of muscle, fascia and tendon Intake Note: Jaswinder is a 44 year old right hand dominant male who presents today as a new patient for an evaluation of right shoulder. Patient was recently seen at his PCP office and was referred to orthopedics. He was also seen at [facility] who s cheduled surgical intervention however due to his insurance they were unable to continue his care. Today patient reports that he was running an auger in early October when he felt his shoulder ripped. He presented to [facility] ER a few days later due to his discomfort, x-rays were performed. He had an MRI that was done at [facility] and was told having a torn bicep muscle. Complaints of constant pain and unable to lift his arm over his head. Limited ROM. Allergies bee venom protein (honey bee) Allergy (Severe, Verified 01/14/25 13:18) Anaphylaxis celecoxib (From Celebrex) Allergy (Intermediate, Verified 01/14/25 13:18) Nausea scorpion venom Allergy (Intermediate, Verified 01/14/25 13:18) Shortness of Breath adalimumab (From Humira) Allergy (Mild, Verified 01/14/25 13:18) Shortness of Breath Medication List - Last Reconciled 01/14/25 by Kim Avila PA-C albuterol sulfate 90 mcg/actuation 2 puffs inhalation Q4-6H PRN 30 days amlodipine 5 mg PO DAILY bisacodyl (Dulcolax (bisacodyl)) 20 mg (4 x 5 mg) PO ONCE 1 day fluticasone furoate-vilanterol 100-25 mcg/dose (Breo Ellipta) 1 inh inhalation DAILY oxycodone 10 mg PO Q6H 28 days pantoprazole 40 mg PO DAILY polyethylene glycol 3350 (Miralax) 238 grams PO ONCE 1 day sucralfate 1 g PO BEDTIME sulfasalazine 1 g (2 x 500 mg) PO BID triamcinolone acetonide 0.1% 1 appl topical BID HPI HPI ED FU- Strain of muscle, fascia and tendon: Details: 44 yo male presents to the office today for right shoulder pain which is a result of a work injury. He states he was using a gas powered augger to dig a hole and the augger got stuck on a root and jerked his right shoulder forward. He developed pain and weakness in the right shoulder. He was seen at another Orthopedic group, MRI obtained and since they are not contracted with his workman's comp insurance he was referred to our office for further evaluation and treatment recommendations. Patient has been out of work since date of injury. [facility] Medical History Back pain Pulmonary nodule Rheumatoid arthritis GERD (gastroesophageal reflux disease) Osteopenia Osteoarthritis Hepatosplenomegaly Hilar lymphadenopathy Neuropathy Hyperparathyroidism HTN (hypertension) Spinal stenosis Surgical History H/O Spinal surgery Family History Father Diabetes Heart attack HTN (hypertension) Skin cancer Social History Housing: House Alcohol intake: current Alcohol intake frequency: a few times a month Patient Tobacco Use Status: Former Tobacco user Tobacco use type: Cigar Years Smoked: 32 e-Cigarette/Vaping Use: Never Used Second Hand Smoke Exposure: No Substance Use Type: Marijuana service: No Current occupational status: employed 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 Current occupational exposures/hazards: No Cognitive needs: No Hearing needs: No Vision needs: Yes (Patient wears glasses.) Review of Systems Const All systems reviewed & are unremarkable except as noted in HPI and below Physical Exam Vital Signs: BMI result Body Mass Index 38.1 Const General: cooperative and no acute distress Orientation/consciousness: patient oriented x3 Resp Effort & Inspection: normal respiratory effort and able to speak in complete sentences Cardio Peripheral pulses: Peripheral pulses 2+ throughout Neuro General: patient oriented x3 Extrem Other: Right shoulder normal to inspection. He has limited motion with use of accessory muscles with forward flexion. Weakness with empty can and external rotation with recruitment of accessory muscles. He is unable to perform internal rotation. Neurovascularly intact. Assessment & Plan Assessment & Plan (1) Rupture of right biceps tendon: Code(s): S46.211A - Strain of muscle, fascia and tendon of other parts of biceps, right arm, initial encounter Category: Medical (2) Right shoulder pain: Code(s): M25.511 - Pain in right shoulder Category: Medical Plan Patient had an MRI of the right upper extremity. He does not have this available for my review today. I am concerned about the rotator cuff and surrounding structures given his physical exam findings therefore it is important for me to review this MRI. Once I obtain the imaging report I will contact the patient to discuss my interpretation along with an it recommendations going forward. The patient is content with this plan. He will continue to remain out of work. Coding Level of Care Code New Pt Level 3 (49776) Complex EM visit Add On G2211 Diagnoses Rupture of right biceps tendon S46.211A Right shoulder pain M25.511
[2025-01-14 13:31] VITALS: BMI 38.1
== END 2025-01-14 14:24 | disposition home or self-care (01) ==
LOC: HO.HOS 13:02
PROVIDERS: PCP Physician Assistant; Visit Provider Physician Assistant
DX: S46.211A Strain of muscle, fascia and tendon of other parts of biceps, right arm, initial encounter (principal); M25.511 Pain in right shoulder
CPT/HCPCS: 99203; G2211

== ENCOUNTER 2025-01-18 10:42 | Outpatient (AMB) | payer OTHER, SELFPAY ==
--- NOTE | 2025-01-18 10:42 | MHC.OFFVIS ---
Intake Visit Reasons: OV- MRI review Intake Note: Jaswinder is a 44 year old male who is scheduled for a telephone visit to discuss MRI of right shoulder that was performed at [facility]. Allergies bee venom protein (honey bee) Allergy (Severe, Verified 01/18/25 10:47) Anaphylaxis celecoxib (From Celebrex) Allergy (Intermediate, Verified 01/18/25 10:47) Nausea scorpion venom Allergy (Intermediate, Verified 01/18/25 10:47) Shortness of Breath adalimumab (From Humira) Allergy (Mild, Verified 01/18/25 10:47) Shortness of Breath Medication List - Last Reconciled 01/18/25 by Kim Avila PA-C albuterol sulfate 90 mcg/actuation 2 puffs inhalation Q4-6H PRN 30 days amlodipine 5 mg PO DAILY bisacodyl (Dulcolax (bisacodyl)) 20 mg (4 x 5 mg) PO ONCE 1 day fluticasone furoate-vilanterol 100-25 mcg/dose (Breo Ellipta) 1 inh inhalation DAILY oxycodone 10 mg PO Q6H 28 days pantoprazole 40 mg PO DAILY polyethylene glycol 3350 (Miralax) 238 grams PO ONCE 1 day sucralfate 1 g PO BEDTIME sulfasalazine 1 g (2 x 500 mg) PO BID triamcinolone acetonide 0.1% 1 appl topical BID HPI HPI OV- MRI review: Details: 44-year-old gentleman presents for right shoulder MRI review telehealth. Patient continues to have discomfort and limitations with reaching overhead primarily due to weakness. [facility] Medical History Back pain Pulmonary nodule Rheumatoid arthritis GERD (gastroesophageal reflux disease) Osteopenia Osteoarthritis Hepatosplenomegaly Hilar lymphadenopathy Neuropathy Hyperparathyroidism HTN (hypertension) Spinal stenosis Surgical History H/O Spinal surgery Family History Father Diabetes Heart attack HTN (hypertension) Skin cancer Social History Housing: House Alcohol intake: current Alcohol intake frequency: a few times a month Patient Tobacco Use Status: Former Tobacco user Tobacco use type: Cigar Years Smoked: 32 e-Cigarette/Vaping Use: Never Used Second Hand Smoke Exposure: No Substance Use Type: Marijuana service: No Current occupational status: employed 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 Current occupational exposures/hazards: No Cognitive needs: No Hearing needs: No Vision needs: Yes (Patient wears glasses.) Review of Systems Const All systems reviewed & are unremarkable except as noted in HPI and below Physical Exam Resp Effort & Inspection: normal respiratory effort and able to speak in complete sentences Telehealth Telehealth Telehealth Platform: Telephone Telehealth method: voice only Patient verbally consented to treatment: Yes Patient verbally consented to billing insurance company: Yes Patient informed of any privacy concerns related to visit: Yes Minutes spent on Phone/Video with Pt.: 10 Results Reviewed Results Reviewed: Assessment & Plan Assessment & Plan (1) Right shoulder injury: Code(s): S49.91XA - Unspecified injury of right shoulder and upper arm, initial encounter Category: Medical Plan: I reviewed the MRI findings with the patient and while he continues to have limitations in functional ability due to his weakness I recommend he come in to see me with Dr. Aldana to discuss further recommendations as he has done physical therapy from his previous orthopedic practice which did not provide significant improvement. Patient is content with this plan and will see me back as discussed. Coding Level of Care Code Complex visit Add On G2211 Diagnoses Right shoulder injury S49.91XA
--- OUTSIDE RECORDS SUMMARY | 2025-01-18 11:28 | XMS_ITS | Clinical Summary ---
Author Organization [facility] Address [address] [place] [id number] Phone Care Team Providers Care Ct Mri Technologist Name Role Phone Sami Pitt MD Primary Care Provider [phone]- [phone] Allergies Active Allergy Reactions Criticality Noted Date [...] Team Description 12/25/2024 Telephone Thoracic Surgery - [address] [id number] Shannon Crum MA 12/17/2024 2:00 PM EDT Consult Thoracic Surgery - [address] [id number] Liz Arthur MD Mediastinal lymphadenopathy (Primary Dx) 12/14/2024 Telephone Thoracic Surgery [address] [phone] Gala Tavarez MA from Last [...] this topic Medical Devices Implanted Type Area Conventional Machinist Device Identifier Shelf Expiration Date Model / [...] GEMUSE QTc 418 ms GEMUSE P Wave [place] 55 degrees GEMUSE R [place] -3 degrees GEMUSE T [place] 18 degrees GEMUSE ECG Interpretation Normal sinus rhythm Normal ECG No previous ECGs available Confirmed by MD SANDY, FLORIDALMA ([id number]) on 12/25/2024 7:13:03 PM GEMUSE 12/25/2024 11:0 7 AM EDT 12/25/2024 7:13 PM EDT us Liz Arthur MD ECG ORDERABLES Final Result GEMUSE * Recheck blood typing (12/25/2024 10:59 AM EDT) ABO Group O 12/25/2024 1:15 PM EDT [facility] Rh Type Positive 12/25/2024 1:15 PM EDT [facility] Blood Venous blood specimen / Unknown Venipuncture / Unknown 12/25/2024 10:59 AM EDT 12/25/2024 11:48 AM EDT us Liz Arthur MD LAB BLOOD BANK TEST ORDERABLES F inal Result [facility] [address] [place] [address], * CBC auto differential (12/25/2024 10:59 AM EDT) WBC 8.7 4.8 - 10.8 K/mcL LAB HEMETOLOGY METHOD 12/25/2024 12:03 PM EDT [facility] RBC 5.30 4.50 - 5.50 M/mcL LAB HEMETOLOGY METHOD [facility] Hemoglobin 15.3 13.5 - 17.5 g/dL LAB HEMETOLOGY METHOD 12/25/2024 12:03 PM EDT [facility] Hematocrit 46.4 42.0 - 54.0 % LAB HEMETOLOGY METHOD 12/25/2024 12:03 PM [facility] MCV 86.9 79.0 - 98.0 FL LAB HEMETOLOGY METHOD 12/25/2024 12:03 [facility] MCH 28.7 27.0 - 32.0 pcg LAB HEMETOLOGY METHOD 12/25/2024 12:03 PM [facility] MCHC 33.0 32.0 - 37.0 g/dL LAB HEMETOLOGY METHOD 12/25/2024 12:03 PM [facility] RDW 14.3 11.0 - 15.0 % LAB HEMETOLOGY METHOD 12/25/2024 12:03 PM [facility] Platelets 307 130 - 400 K/mcL LAB HEMETOLOGY METHOD 12/25/2024 12:03 PM [facility] MPV 9.6 7.0 - 11.0 FL LAB HEMETOLOGY METHOD 12/25/2024 12:03 PM [facility] NRBC 0.0 <1.0 % LAB HEMETOLOGY METHOD 12/25/2024 12:03 PM [facility] NRBC Absolute 0.00 <0.10 K/mcL LAB HEMETOLOGY METHOD 12/25/2024 12:03 PM [facility] Neutrophils Relative 62.4 % LAB HEMETOLOGY METHOD 12/25/2024 12:03 PM [facility] Lymphocytes Relative 26.2 % LAB HEMETOLOGY METHOD 12/25/2024 12:03 PM [facility] Monocytes Relative 6.9 % LAB HEMETOLOGY METHOD 12/25/2024 12:03 PM [facility] Eosinophils Relative 3.3 % LAB HEMETOLOGY METHOD 12/25/2024 12:03 PM [facility] Basophils Relative 0.9 % LAB HEMETOLOGY METHOD 12/25/2024 12:03 PM [facility] Immature Granulocytes Relative 0.3 % LAB HEMETOLOGY METHOD 12/25/2024 12:03 PM [facility] Neutrophils Absolute 5.41 1.50 - 7.00 K/mcL LAB HEMETOLOGY METHOD 12/25/2024 12:03 PM [facility] Lymphocytes Absolute 2.27 1.00 - 5.00 K/mcL LAB HEMETOLOGY METHOD 12/25/2024 12:03 PM [facility] Monocytes Absolute 0.60 0.20 - 1.00 K/mcL LAB HEMETOLOGY METHOD 12/25/2024 12:03 PM [facility] Eosinophils Absolute 0.29 0.00 - 0.50 K/[facility] HEMETOLOGY METHOD 12/25/2024 12:03 PM EDT [facility] Basophils Absolute 0.08 0.00 - 0.20 K/[facility] LAB HEMETOLOGY METHOD 12/25/2024 12:03 PM EDT [facility] Immature Granulocytes Absolute 0.03 0.00 - 0.03 K/[facility] LAB HEMETOLOGY METHOD 12/25/2024 12:03 PM EDT [facility] Blood Venous blood specimen / Unknown Venipuncture / Unknown 12/25/2024 10:59 AM EDT 12/25/2024 11:48 AM EDT us Liz Arthur MD LAB BLOOD ORDERABLES Final Resul t Performing Organization Address [facility]/ZIP Co de Phone Number [facility] [address] [place] [address], [place] [phone] * Activated partial thromboplastin time (12/25/2024 10:59 AM EDT) aPTT 33.2 24.1 - 39.3 sec LAB COAGULATION METHOD 12/25/2024 12:00 PM EDT [facility] Blood Venous blood specimen / Unknown Venipuncture / Unknown 12/25/2024 10:59 AM EDT 12/25/2024 11:48 AM EDT us Liz Arthur MD LAB BLOOD ORDERABLES Final Resul t [facility] [address] [place] [address], [place] [phone] * Prothrombin time with INR (12/25/2024 10:59 AM EDT) Protime 11.6 10.6 - 13.9 sec LAB COAGULATION METHOD 12/25/2024 12:00 PM EDT [facility] INR 0.9 LAB COAGULATION METHOD 12/25/2024 12:00 PM EDT [facility] Blood Venous blood specimen / Unknown Venipuncture / Unknown 12/25/2024 10:59 AM EDT 12/25/2024 11:48 AM EDT us Liz Arthur MD LAB BLOOD ORDERABLES Final Resul t Performing Organization Address [facility] de Phone Number [facility] [address] [place] [address], [place] [phone] * Type and screen (12/25/2024 10:59 AM EDT) ABO Group O 12/25/2024 1:06 PM EDT [facility] Rh Type Positive 12/25/2024 1:06 PM EDT [facility] Antibody Screen Negative 12/25/2024 1:06 PM EDT [facility] Blood Venous blood specimen / Unknown Venipuncture / Unknown 12/25/2024 10:59 AM EDT 12/25/2024 11:48 AM EDT us Liz Arthur MD LAB BLOOD BANK TEST ORDERABLES F inal Result Performing Organization Address [facility] de Phone Number [facility] [address] [place] [address], [place] [phone] * (ABNORMAL) Basic metabolic panel (12/25/2024 10:59 AM EDT) Sodium 139 133 - 145 mmol/L LAB CHEMISTRY METHOD 12/25/2024 12:17 PM EDT [facility] Potassium 3.8 3.5 - 5.5 mmol/L LAB CHEMISTRY METHOD 12/25/2024 12:17 PM EDT [facility] Chloride 106 96 - 110 mmol/L LAB CHEMISTRY METHOD 12/25/2024 12:17 PM [facility] CO2 28 21 - 32 mmol/L LAB CHEMISTRY METHOD 12/25/2024 12:17 PM [facility] Anion Gap 5 3 - 11 LAB CHEMISTRY METHOD 12/25/2024 12:17 PM [facility] Glucose 124(H) 70 - 100 mg/dL LAB CHEMISTRY METHOD 12/25/2024 12:17 PM [facility] BUN 9 5 - 25 mg/dL LAB CHEMISTRY METHOD 12/25/2024 12:17 PM [facility] Creatinine 0.85 0.70 - 1.30 mg/dL LAB CHEMISTRY METHOD 12/25/2024 12:17 PM [facility] eGFR 109 >=60 mL/min/1. 73m2 LAB CHEMISTRY METHOD 12/25/2024 12:17 PM [facility] Comment:Calculation based on the Chronic Kidney Disease Epidemiology Collaboration (CKD-EPI) equation refit without adjustment for race. BUN/Creatinine Ratio 10.6 LAB CHEMISTRY METHOD 12/25/2024 12:17 PM [facility] Calcium 9.0 8.5 - 10.5 mg/dL LAB CHEMISTRY METHOD 12/25/2024 12:17 PM [facility] Blood Venous blood specimen / Unknown Venipuncture / Unknown 12/25/2024 10:59 AM EDT 12/25/2024 11:48 AM EDT us Liz Arthur MD LAB BLOOD ORDERABLES Final Resul t [facility] [address] [place] [address], from Last 3 Months Insurance ([address] [place] [address] [facility] Care Teams Ct Mri Technologist Relationship Specialty Start Date End Date Sami Pitt MD [address] [place] [address] Dr Robert MA PCP - General Family Medicine 01/17/24
== END 2025-01-18 11:42 | disposition home or self-care (01) ==
LOC: HO.HOS 10:42
PROVIDERS: PCP Physician Assistant; Visit Provider Physician Assistant
DX: S49.91XA Unspecified injury of right shoulder and upper arm, initial encounter (principal)
CPT/HCPCS: 98012

== ENCOUNTER 2025-01-22 10:10 | Outpatient (AMB) | payer OTHER, SELFPAY ==
[2025-01-22 10:12] VITALS: BP 110/70; PULSE 71; O2SAT 98; BMI 38.4
--- NOTE | 2025-01-22 10:12 | MHC.OFFVIS ---
Vital Signs 01/22/25 10:12 Height 5 ft 5 in Weight 230 lb 8 oz BMI 38.4 BP 110/70 Blood Pressure Location Lt brachial Position Sitting Pulse 71 Pulse Source Pulse Oximeter Pulse Oximetry (%) 98 Oxygen Delivery Method Room Air Intake Visit Reasons: Dyspnea Allergies bee venom protein (honey bee) Allergy (Severe, Verified 01/28/25 10:20) Anaphylaxis celecoxib (From Celebrex) Allergy (Intermediate, Verified 01/28/25 10:20) Nausea scorpion venom Allergy (Intermediate, Verified 01/28/25 10:20) Shortness of Breath adalimumab (From Humira) Allergy (Mild, Verified 01/28/25 10:20) Shortness of Breath HPI HPI Dyspnea: Details: Jaswinder is a pleasant 44 year old male, former 20+ pack year smoker, quit 2023 with underlying h/o mediastinal lymphadenopathy, ankylosing spondylitis, RA on Humira. Patient has a h/o medistinal lymphadenopathy dating back to 2022. 08/2022: Multiple subcentimeter short axis paratracheal and subcarinal lymph nodes. There is a 1.1 cm prevascular lymph node. 01/03/2023: There is a 2 x 1.4 cm enlarged lymph node along the aortic arch, seen on the previous CT. Multiple small lymph nodes are present within bilateral hilar and mediastinum. 01/13/23: There is a 1.81 x 1.5 cm lymph node along the aortic arch. Smaller lymph nodes are noted within the mediastinum. 09/2023: There is an unchanged 1.8 x 1.5 cm enlarged prevascular lymph node, image 18 series 602. Smaller lymph nodes noted within the mediastinum are also unchanged. Compared to 2022 scans. Given the persistent of lymphadenopathy he was referred to Dr. Arthur. He had his initial consultation and agreed to proceed with biopsy however had to be placed on hold due to insurance. He plans to call Dr Arthur's office once insurance issues resolve to move forward with biopsy. 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 He continues to report dyspnea on exertion and dry cough. [facility] Medical History Back pain Pulmonary nodule Rheumatoid arthritis GERD (gastroesophageal reflux disease) Osteopenia Osteoarthritis Hepatosplenomegaly Hilar lymphadenopathy Neuropathy Hyperparathyroidism HTN (hypertension) Spinal stenosis Surgical History H/O Spinal surgery Family History Father Diabetes Heart attack HTN (hypertension) Skin cancer Social History Housing: House Alcohol intake: current Alcohol intake frequency: a few times a month Patient Tobacco Use Status: Former Tobacco user Tobacco use type: Cigar Years Smoked: 32 e-Cigarette/Vaping Use: Never Used Second Hand Smoke Exposure: No Substance Use Type: Marijuana service: No Current occupational status: employed 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 Current occupational exposures/hazards: No Cognitive needs: No Hearing needs: No Vision needs: Yes (Patient wears glasses.) Review of Systems Const Denies chills, Denies excessive sweating, Denies fever(s), Denies headache(s) and Denies night sweats Eyes Denies dry eyes, Denies irritation and Denies itchy eyes ENT Reports Normal hearing present, Denies headache(s), Denies nasal congestion, Denies nasal discharge, Denies post nasal drip and Denies sore throat Card Denies chest pain, Denies chest pain at rest, Denies chest pain with activity, Denies claudication, Denies leg edema, Reports dyspnea on exertion and Denies paroxysmal nocturnal dyspnea Resp Reports cough, Denies excessive phlegm production, Denies pain on inspiration, Denies pain with cough, Reports dyspnea on exertion and Denies stridor Musc Reports arthralgias Neuro Reports Normal hearing present and Denies headache(s) Endo Denies excessive sweating Santos/Lymph Denies lymphadenopathy Aller/Immun Denies itchy eyes and Denies seasonal rhinorrhea Physical Exam Vital Signs: Last Vital Signs Pulse 71 01/22/25 10:12 BP 110/70 01/22/25 10:12 Pulse Ox 98 01/22/25 10:12 Oxygen Delivery Method Room Air 01/22/25 10:12 BMI result Body Mass Index 38.4 Const General: cooperative, healthy appearing, comfortable, no acute distress, well developed and alert Nutritional Appearance: obese Orientation/consciousness: patient oriented x3 Limitations: no limitations HEENT Head: Yes normal to inspection, Yes normocephalic and Yes atraumatic Ears: hearing grossly normal bilaterally and external ears normal Eyes General: appearance normal, both eyes and all related structures Eyelids: Yes eyelids normal Sclerae: sclerae normal EOM: EOMs intact bilaterally Neck Neck: Yes normal visual inspection and Yes no lymphadenopathy Lymphatic: no lymphadenopathy noted Chest Chest palpation & inspection: normal inspection of the chest Resp Effort & Inspection: normal respiratory effort, able to speak in complete sentences, no audible wheezes, no cough, no stridor, not tachypneic, no tripod positioning and no use of accessory muscles Auscultation: diminished lung sounds Cardio Jugular venous distension: no JVD Rate: regular rate Rhythm: regular rhythm Skin Other: warm, dry General skin exam: no rashes or lesions noted Neuro General: patient oriented x3 Cranial nerves: Yes Normal hearing present Cognition (Neuro): normal cognition Gait exam (Neuro): Normal gait present Extrem General: Yes normal to inspection, Yes capillary refill normal, Yes no clubbing, cyanosis or edema and Yes no pedal edema Psych Appearance: grossly normal and well kempt Speech and movement: Normal speech and movement present and Clear speech present Affect: normal affect Attitude: cooperative Thought process: Normal thought process present Thought content: Normal thought content present Insight: Good insight present (Psych) Judgement: Good judgement present (Psych) Assessment & Plan Assessment & Plan (1) Dyspnea: Code(s): R06.00 - Dyspnea, unspecified Category: Medical (2) Environmental allergies: Code(s): Z91.09 - Other allergy status, other than to drugs and biological substances Category: Medical (3) Mediastinal lymphadenopathy: Code(s): R59.0 - Localized enlarged lymph nodes Category: Medical (4) Personal history of tobacco use: Code(s): Z87.891 - Personal history of nicotine dependence Category: Social Hx Plan Encouraged patient to reach out to Dr. Arthur's office to arrange biopsy once insurance issues resolve to assess ongoing lymphadenopathy. Patient with significant smoking history, awaiting PFT to assess severity of obstructive defect. Breo was sent however not financially feasible, will send Wixela. All questions were answered and patient is in agreement of plan. Will follow up in 6-8 weeks or sooner if needed. Medications: New fluticasone propion-salmeterol 250-50 mcg/dose (Wixela Inhub) 1 inh inhalation Q12H 60 ea 3RF Coding Level of Care Code Est Pt Level 4 (21877) Diagnoses Dyspnea R06.00 Environmental allergies Z91.09 Mediastinal lymphadenopathy R59.0 Personal history of tobacco use Z87.891
--- OUTSIDE RECORDS SUMMARY | 2025-01-22 12:25 | XMS_ITS | Clinical Summary ---
Author Organization [facility] Address [address] [place] [phone] Phone Care Team Providers Care Rug Shampooer Name Role Phone Sami Pitt MD Primary Care Provider Allergies Active Allergy Reactions Criticality Noted Date Comments Bee Pollens Anaphylaxis High 01/17/2024 Calamine 12/17/2024 Coconut 12/17/2024 Medications fluticasone furoate (Arnuity Ellipta) 100 mcg/actuation blister with device inhaler Inhale 100 mcg by mouth. 4 Active clobetasoL (TEMOVATE) 0.05 % cream APPLY TOPICALLY TO THE AFFECTED AREA TWICE DAILY FOR 2 WEEKS 5 Active EPINEPHrine (EpiPen 2-Jose Miguel) 0.3 mg/0.3 mL injection Inject 0.3 mL (0.3 mg total) into the thigh. 4 Active famotidine (Pepcid) 40 mg tablet Take 1 tablet (40 mg total) by mouth. 4 Active albuterol HFA (PROAIR HFA ; PROVENTIL HFA ; VENTOLIN HFA) 90 mcg/actuation inhaler INHALE 2 PUFFS BY MOUTH EVERY 4 TO 6 HOURS NEEDED FOR SHORTNESS OF BREATH OR WHEEZING 5 Active amLODIPine (NORVASC) 5 mg tablet Take 1 tablet (5 mg total) by mouth 1 (one) time each day. 5 Active oxyCODONE (ROXICODONE) 10 mg immediate release tablet TAKE 1 TABLET BY MOUTH EVERY 6 HOURS FOR PAIN 5 Active pantoprazole (PROTONIX) 40 mg EC tablet Active Active Problems Problem Noted Date Diagnosed Date Mediastinal lymphadenopathy 12/17/2024 Encounters Date Type Department Care Team Description 12/25/2024 Telephone Thoracic Surgery - [address] [phone] Shannon Crum MA 12/17/2024 2:00 PM EDT Consult Thoracic Surgery - [address] [phone] Liz Arthur MD Mediastinal lymphadenopathy (Primary Dx) 12/14/2024 Telephone Thoracic Surgery - [place] [address] [address] Gala Tavarez MA from Last [...] this topic Medical Devices Implanted Type Area Government Instructor Device Identifier Shelf Expiration Date Model / [...] GEMUSE QTc 418 ms GEMUSE P Wave [place] 55 degrees GEMUSE R [place] -3 degrees GEMUSE T [place] 18 degrees GEMUSE ECG Interpretation Normal sinus rhythm Normal ECG No previous ECGs available Confirmed by MD SANDY, FLORIDALMA ([id number]) on 12/25/2024 7:13:03 PM GEMUSE 12/25/2024 11:0 7 AM EDT 12/25/2024 7:13 PM EDT us Liz Arthur MD ECG ORDERABLES Final Result GEMUSE * Recheck blood typing (12/25/2024 10:59 AM EDT) ABO Group O 12/25/2024 1:15 PM EDT [facility] Rh Type Positive 12/25/2024 1:15 PM EDT [facility] Blood Venous blood specimen / Unknown Venipuncture / Unknown 12/25/2024 10:59 AM EDT 12/25/2024 11:48 AM EDT us Liz Arthur MD LAB BLOOD BANK TEST ORDERABLES F inal Result [facility] [address] [place] [address], [place] [phone] * CBC auto differential (12/25/2024 10:59 AM EDT) WBC 8.7 4.8 - 10.8 K/mcL LAB HEMETOLOGY METHOD 12/25/2024 12:03 PM EDT [facility] RBC 5.30 4.50 - 5.50 M/mcL LAB HEMETOLOGY METHOD 12/25/2024 12:03 PM EDT [facility] Hemoglobin 15.3 13.5 - 17.5 g/dL LAB HEMETOLOGY METHOD 12/25/2024 12:03 PM EDT [facility] Hematocrit 46.4 42.0 - 54.0 % LAB HEMETOLOGY METHOD 12/25/2024 12:03 PM EDT [facility] MCV 86.9 79.0 - 98.0 FL LAB HEMETOLOGY METHOD 12/25/2024 12:03 PM EDT [facility] MCH 28.7 27.0 - 32.0 pcg LAB HEMETOLOGY METHOD 12/25/2024 12:03 PM EDT [facility] MCHC 33.0 32.0 - 37.0 g/dL LAB HEMETOLOGY METHOD 12/25/2024 12:03 PM EDT [facility] RDW 14.3 11.0 - 15.0 % LAB HEMETOLOGY METHOD 12/25/2024 12:03 PM EDT [facility] Platelets 307 130 - 400 K/mcL LAB HEMETOLOGY METHOD 12/25/2024 12:03 PM EDT [facility] MPV 9.6 7.0 - 11.0 FL LAB HEMETOLOGY METHOD 12/25/2024 12:03 PM [facility] NRBC 0.0 <1.0 % LAB HEMETOLOGY METHOD 12/25/2024 12:03 PM [facility] NRBC Absolute 0.00 <0.10 K/mcL LAB HEMETOLOGY METHOD 12/25/2024 12:03 PM [facility] Neutrophils Relative 62.4 % LAB HEMETOLOGY METHOD 12/25/2024 12:03 PM [facility] Lymphocytes Relative 26.2 % LAB HEMETOLOGY METHOD 12/25/2024 12:03 PM [facility] Monocytes Relative 6.9 % LAB HEMETOLOGY METHOD 12/25/2024 12:03 PM [facility] Eosinophils Relative 3.3 % LAB HEMETOLOGY METHOD 12/25/2024 12:03 PM [facility] Basophils Relative 0.9 % LAB HEMETOLOGY METHOD 12/25/2024 12:03 PM [facility] Immature Granulocytes Relative 0.3 % LAB HEMETOLOGY METHOD 12/25/2024 12:03 PM [facility] Neutrophils Absolute 5.41 1.50 - 7.00 K/mcL LAB HEMETOLOGY METHOD 12/25/2024 12:03 PM [facility] Lymphocytes Absolute 2.27 1.00 - 5.00 K/mcL LAB HEMETOLOGY METHOD 12/25/2024 12:03 PM [facility] Monocytes Absolute 0.60 0.20 - 1.00 K/mcL LAB HEMETOLOGY METHOD 12/25/2024 12:03 PM [facility] Eosinophils Absolute 0.29 0.00 - 0.50 K/mcL LAB HEMETOLOGY METHOD 12/25/2024 12:03 PM [facility] Basophils Absolute 0.08 0.00 - 0.20 K/[facility] LAB HEMETOLOGY METHOD 12/25/2024 12:03 PM EDT [facility] Immature Granulocytes Absolute 0.03 0.00 - 0.03 /[facility] LAB HEMETOLOGY METHOD 12/25/2024 12:03 PM EDT [facility] Blood Venous blood specimen / Unknown Venipuncture / Unknown 12/25/2024 10:59 AM EDT 12/25/2024 11:48 AM EDT us Liz Arthur MD LAB BLOOD ORDERABLES Final Resul t Performing Organization Address City/[facility]/ZIP Co de Phone Number [facility] [address] [place] [address], [place] [phone] * Activated partial thromboplastin time (12/25/2024 10:59 AM EDT) aPTT 33.2 24.1 - 39.3 sec LAB COAGULATION METHOD 12/25/2024 12:00 PM EDT [facility] Blood Venous blood specimen / Unknown Venipuncture / Unknown 12/25/2024 10:59 AM EDT 12/25/2024 11:48 AM EDT us Liz Arthur MD LAB BLOOD ORDERABLES Final Resul t [facility] [address] [place] [address], [place] [phone] * Prothrombin time with INR (12/25/2024 10:59 AM EDT) Protime 11.6 10.6 - 13.9 sec LAB COAGULATION METHOD 12/25/2024 12:00 PM EDT [facility] INR 0.9 LAB COAGULATION METHOD 12/25/2024 12:00 PM EDT [facility] Blood Venous blood specimen / Unknown Venipuncture / Unknown 12/25/2024 10:59 AM EDT 12/25/2024 11:48 AM EDT us Liz Arthur MD LAB BLOOD ORDERABLES Final Resul t Performing Organization Address [facility]/[place] Co de Phone Number [facility] [address] [place] [address], [place] [phone] * Type and screen (12/25/2024 10:59 AM EDT) ABO Group O 12/25/2024 1:06 PM EDT [facility] Rh Type Positive 12/25/2024 1:06 PM EDT [facility] Antibody Screen Negative 12/25/2024 1:06 PM EDT [facility] Blood Venous blood specimen / Unknown Venipuncture / Unknown 12/25/2024 10:59 AM EDT 12/25/2024 11:48 AM EDT us Liz Arthur MD LAB BLOOD BANK TEST ORDERABLES F inal Result Performing Organization Address [facility]/ZIP Nm de Phone Number [facility] [address] [place] [address], [place] [phone] * (ABNORMAL) Basic metabolic panel (12/25/2024 10:59 AM EDT) Sodium 139 133 - 145 mmol/L LAB CHEMISTRY METHOD 12/25/2024 12:17 PM EDT [facility] Potassium 3.8 3.5 - 5.5 mmol/L LAB CHEMISTRY METHOD 12/25/2024 12:17 PM EDT [facility] Chloride 106 96 - 110 mmol/L LAB CHEMISTRY METHOD 12/25/2024 12:17 PM EDT [facility] CO2 28 21 - 32 mmol/L LAB CHEMISTRY METHOD 12/25/2024 12:17 PM EDT [facility] Anion Gap 5 3 - 11 LAB CHEMISTRY METHOD 12/25/2024 12:17 PM T [facility] Glucose 124(H) 70 - 100 mg/dL LAB CHEMISTRY METHOD 12/25/2024 12:17 PM [facility] BUN 9 5 - 25 mg/dL LAB CHEMISTRY METHOD 12/25/2024 12:17 PM T [facility] Creatinine 0.85 0.70 - 1.30 mg/dL LAB CHEMISTRY METHOD 12/25/2024 12:17 PM T [facility] eGFR 109 >=60 mL/min/1. 73m2 LAB CHEMISTRY METHOD 12/25/2024 12:17 PM T [facility] Comment:Calculation based on the Chronic Kidney Disease Epidemiology Collaboration (CKD-EPI) equation refit without adjustment for race. BUN/Creatinine Ratio 10.6 LAB CHEMISTRY METHOD 12/25/2024 12:17 PM [facility] Calcium 9.0 8.5 - 10.5 mg/dL LAB CHEMISTRY METHOD 12/25/2024 12:17 PM [facility] Blood Venous blood specimen / Unknown Venipuncture / Unknown 12/25/2024 10:59 AM EDT 12/25/2024 11:48 AM EDT us Liz Arthur MD LAB BLOOD ORDERABLES Final Resul t [facility] [address] [place] [address], from Last 3 Months Insurance [employer] Care Teams Rug Shampooer Relationship Specialty Start Date End Date Sami Pitt MD [address] [place] [address] Dr Robert MA PCP - General Family Medicine 01/17/24
== END 2025-01-22 10:48 | disposition home or self-care (01) ==
LOC: HO.HPSW 10:11
PROVIDERS: PCP Physician Assistant; Visit Provider Nurse Practitioner Family
DX: R06.00 Dyspnea, unspecified (principal); Z91.09 Other allergy status, other than to drugs and biological substances; R59.0 Localized enlarged lymph nodes; Z87.891 Personal history of nicotine dependence
CPT/HCPCS: 99214

== ENCOUNTER 2025-01-22 10:10 | Outpatient (REF) | payer OTHER, SELFPAY ==
[2025-01-22 11:49] LABS: Hematocrit 45.6 % (42.0-52.0); Hemoglobin 15.1 g/dl (14.0-18.0); Imm Gran Abs Auto 0.03 X10*3/uL (0.00-0.03); Imm Gran Pct Auto 0.4 % (0.0-0.4); Lymphocytes Absolute Auto 2.6 X10*3/uL (1.2-4.9); MANUAL DIFF FLAG SCAN; Mean Corpuscular HGB Conc 33.1 g/dl (31.0-36.0); Mean Corpuscular Hemoglobin 28.9 pg (27.0-33.0); Mean Corpuscular Volume 87.2 fL (80.0-98.0); NRBC Abs Auto 0.000 X10*3/uL (0.0-0.012); NRBC Pct Auto 0.0 /100WBC (0.0-0.2); PLT CLUMP 1; Red Blood Count 5.23 X10*6/uL (4.60-5.80); SCAN SMEAR FLAG 1
[2025-01-22 12:00] LABS: Platelet Count 230 X10*3/uL (160-400); White Blood Count 7.3 X10*3/uL (4.8-10.8)
[2025-01-22 12:02] LABS: Alanine Aminotransferase 40 U/L (0-40); Albumin Level 4.4 g/dL (3.5-5.0); Alkaline Phosphatase 123 U/L (39-117); Anion Gap 12 (12-20); Aspartate Amino Transferase 29 U/L (5-37); Blood Urea Nitrogen 11 mg/dL (9-16); Calcium 9.1 mg/dL (8.4-10.2); Carbon Dioxide 26 mmol/L (22-29); Chloride 108 mmol/L (96-108); Estimated Glomerular Filt Rate > 60; Potassium 3.8 mmol/L (3.3-5.1); Sodium 142 mmol/L (135-145); Total Protein 7.2 g/dL (6.5-8.0)
[2025-01-22 12:11] LABS: Parathyroid Hormone Intact 84.4 pg/mL (8.7-77.1)
[2025-01-22 12:19] LABS: Erythrocyte Sedimentation Rate 9 MM/HR (0-15)
[2025-01-22 12:24] LABS: Alanine Aminotransferase 41 U/L (0-40); Albumin Level 4.4 g/dL (3.5-5.0); Alkaline Phosphatase 123 U/L (39-117); Anion Gap 13 (12-20); Aspartate Amino Transferase 32 U/L (5-37); Blood Urea Nitrogen 11 mg/dL (9-16); Calcium 9.0 mg/dL (8.4-10.2); Carbon Dioxide 25 mmol/L (22-29); Chloride 108 mmol/L (96-108); Cholesterol 183 mg/dL (<200); Estimated Glomerular Filt Rate > 60; HDL Cholesterol 32 mg/dL (>40); Potassium 3.6 mmol/L (3.3-5.1); Sodium 142 mmol/L (135-145); Total Protein 7.2 g/dL (6.5-8.0); Triglycerides 236 mg/dL (<150)
[2025-01-22 12:35] LABS: HBS Num1 0.00 mIU/mL (0-7.99); HBc Num1 0.06 S/CO (0.00-0.79); HBsAGNum1 0.43 S/CO (0.00-0.99); Hepatitis B Surface Antigen Negative (Negative); ~HepC Num1 0.13 S/CO (0.00-0.79); ~Hepatitis B Surface Antibody NONREACTIVE (Nonreactive); ~Hepatitis C Antibody Nonreactive (Nonreactive)
[2025-01-25 01:24] LABS: TS Negative Control Passed; TS Panel A 0; TS Panel B 0; TS Positive Control Passed; TSpotTB Negative (Negative)
== END 2025-01-22 10:11 | disposition home or self-care (01) ==
LOC: HO.WFDLDS 10:10
PROVIDERS: Internal Medicine Endocrinology, Diabetes & Metabolism; PCP Physician Assistant; Referring Provider Student in an Organized Health Care Education/Training Program; Visit Provider Nurse Practitioner Family
DX: R06.00 Dyspnea, unspecified (principal); R59.0 Localized enlarged lymph nodes; Z87.891 Personal history of nicotine dependence; Z11.1 Encounter for screening for respiratory tuberculosis; M05.79 Rheumatoid arthritis with rheumatoid factor of multiple sites without organ or systems involvement; E21.3 Hyperparathyroidism, unspecified; R07.9 Chest pain, unspecified; I10 Essential (primary) hypertension; R73.01 Impaired fasting glucose; Z91.09 Other allergy status, other than to drugs and biological substances; Z79.899 Other long term (current) drug therapy
CPT/HCPCS: 36415; 80053; 80061; 82306; 83036; 83970; 84443; 85025; 85652; 86140; 86200; 86431; 86481; 86704; 86706; 86803; 87340

== ENCOUNTER 2025-01-28 09:54 | Outpatient (REF) | payer OTHER, SELFPAY ==
--- NOTE | ~2025-01-28 | XR_ITS ---
EXAMINATION: XR SHOULDER, LEFT CLINICAL INFORMATION: M25.512 - Pain in left shoulder COMPARISON: None available. TECHNIQUE: Three views of the left shoulder. FINDINGS: The AC joint is intact and unremarkable. Glenohumeral joint is intact and dislocated. The glenohumeral joint is unremarkable. Posterior pedicle screws and rods are present at 3 levels in the midthoracic spine. XR/XR shoulder LT min 2V IMPRESSION: Unremarkable right shoulder. Electronically signed by: Yannick Hahn MD 01/28/2025 10:36 AM SATHYA NUÑEZ
== END 2025-01-28 09:55 | disposition home or self-care (01) ==
LOC: HO.HOSX 09:54
PROVIDERS: PCP Physician Assistant; Visit Provider Physician Assistant
DX: S46.211A Strain of muscle, fascia and tendon of other parts of biceps, right arm, initial encounter (principal); S43.431A Superior glenoid labrum lesion of right shoulder, initial encounter
CPT/HCPCS: 73030

== ENCOUNTER 2025-01-28 09:54 | Outpatient (AMB) | payer OTHER, SELFPAY ==
--- NOTE | 2025-01-28 10:11 | A.OFFVIS_ITS ---
Vital Signs 3 01/28/25 10:12 Height 5 ft 5 in Weight 230 lb BMI 38.3 BP 166/93 H Blood Pressure Location Lt radial Position Sitting Pulse 80 Pulse Source Pulse Oximeter Pulse Oximetry (%) 96 Intake Visit Reasons: ov- right shoulder pain Intake Note: Jaswinder is a 44 year old right hand dominant male who presents today for a follow up of right shoulder. At his last visit he was instructed to follow up in office with Dr. Aldana present to discuss further recommendations. Allergies bee venom protein (honey bee) Allergy (Severe, Verified 01/28/25 10:20) Anaphylaxis celecoxib (From Celebrex) Allergy (Intermediate, Verified 01/28/25 10:20) Nausea scorpion venom Allergy (Intermediate, Verified 01/28/25 10:20) Shortness of Breath adalimumab (From Humira) Allergy (Mild, Verified 01/28/25 10:20) Shortness of Breath HPI HPI ov- right shoulder pain: Details: 44-year-old gentleman returns to the office today for a follow up on his right shoulder which was injured while using an auger and the auger got caught on a root and caused his arm to go through a forceful jerking motion. He was seen by me initially for the right shoulder and had an MRI performed at an outside facility which was later available for my review. The MRI was significant for a SLAP tear which extended into the proximal biceps tendon. Patient continues to have limited function with the right upper extremity which is his dominant arm. He has trialed physical therapy from a previous orthopedic group which he failed. [facility] Medical History Back pain Pulmonary nodule Rheumatoid arthritis GERD (gastroesophageal reflux disease) Osteopenia Osteoarthritis Hepatosplenomegaly Hilar lymphadenopathy Neuropathy Hyperparathyroidism HTN (hypertension) Spinal stenosis Surgical History H/O Spinal surgery Family History Father Diabetes Heart attack HTN (hypertension) Skin cancer Social History Housing: House Alcohol intake: current Alcohol intake frequency: a few times a month Patient Tobacco Use Status: Former Tobacco user Tobacco use type: Cigar Years Smoked: 32 e-Cigarette/Vaping Use: Never Used Second Hand Smoke Exposure: No Substance Use Type: Marijuana service: No Current occupational status: employed 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 Current occupational exposures/hazards: No Cognitive needs: No Hearing needs: No Vision needs: Yes (Patient wears glasses.) Review of Systems Const All systems reviewed & are unremarkable except as noted in HPI and below Physical Exam Vital Signs: Last Vital Signs Pulse 80 01/28/25 10:12 BP 166/93 H 01/28/25 10:12 Pulse Ox 96 01/28/25 10:12 BMI result Body Mass Index 38.3 Const General: cooperative and no acute distress Orientation/consciousness: patient oriented x3 Resp Effort & Inspection: normal respiratory effort and able to speak in complete sentences Cardio Peripheral pulses: Peripheral pulses 2+ throughout Neuro General: patient oriented x3 Extrem Other: Right shoulder with scapular protraction + obriens and pain with rotator cuff strength testing. Results Reviewed Results Reviewed: Assessment & Plan Assessment & Plan (1) Rupture of right biceps tendon: Code(s): S46.211A - Strain of muscle, fascia and tendon of other parts of biceps, right arm, initial encounter Category: Medical (2) Superior labrum psesepyg-st-pphgexpox (SLAP) tear of right shoulder: Code(s): S43.431A - Superior glenoid labrum lesion of right shoulder, initial encounter Category: Medical Plan Mr Rodriguez has a right shoulder injury which would benefit from surgical intervention for optimal functioning. The patient does understand nonsurgical intervention would result in continued limited function. Given the patient's activity level and desire to continue working, it would be recommended to pursue surgical intervention. We discussed the procedure in detail along with the risks benefits and alternatives. Risks including but not limited to infection, injury to surrounding nerves and tissue and bone, small and large vessels, stiffness,need for further surgery, DVT/PE along with intraoperative complications including but not limited to . We discussed postoperative recovery which includes The patient does express understanding we would like to proceed with right shoulder arthroscopy with biceps tenodesis with Dr. Aldana. The patient will be booked accordingly. Orders: Orders 2 XR shoulder LT min 2V Today M25.512 - Pain in left shoulder Coding Level of Care Code Complex visit Add On G2211 Diagnoses Rupture of right biceps tendon S46.211A Superior labrum osmchafh-uf-yzfcxxrif (SLAP) tear of right shoulder S43.680T
[2025-01-28 10:12] VITALS: BP 166/93; PULSE 80; O2SAT 96; BMI 38.3
--- OUTSIDE RECORDS SUMMARY | 2025-01-28 11:57 | XMS_ITS | Clinical Summary ---
Author Organization [facility] Address [address] [place] [phone] Phone Care Team Providers Care Hat Copyist Name Role Phone Sami Pitt MD Primary [...] Team Description 12/25/2024 Telephone Thoracic Surgery - [address] [phone] Shannon Crum MA 12/17/2024 2:00 PM EDT Consult Thoracic Surgery - [address] [phone] Liz Arthur MD Mediastinal lymphadenopathy (Primary Dx) 12/14/2024 Telephone Thoracic Surgery - [place] [address] [address] Gala Tavarez MA from Last [...] this topic Medical Devices Implanted Type Area [employer] Essbase Developer Device Identifier Shelf Expiration Date Model / [...] GEMUSE QTc 418 ms GEMUSE P Wave [place] 55 degrees GEMUSE R [place] -3 degrees GEMUSE T [place] 18 degrees GEMUSE ECG Interpretation Normal sinus rhythm Normal ECG No previous ECGs available Confirmed by MD SANDY, FLORIDALMA ([id number]) on 12/25/2024 7:13:03 PM GEMUSE 12/25/2024 11:0 7 AM EDT 12/25/2024 7:13 PM EDT us Liz Arthur MD ECG ORDERABLES Final Result GEMUSE * Recheck blood typing (12/25/2024 10:59 AM EDT) ABO Group O 12/25/2024 1:15 PM EDT [facility] Rh Type Positive 12/25/2024 1:15 PM EDT [facility] Blood Venous blood specimen / Unknown Venipuncture / Unknown 12/25/2024 10:59 AM EDT 12/25/2024 11:48 AM EDT us Liz Arthur MD LAB BLOOD BANK TEST ORDERABLES F inal Result [facility] [address] [place] [address], [place] [phone] * CBC auto differential (12/25/2024 10:59 AM EDT) WBC 8.7 4.8 - 10.8 K/mcL LAB HEMETOLOGY METHOD 12/25/2024 12:03 PM EDT [facility] RBC 5.30 4.50 - 5.50 M/mcL LAB HEMETOLOGY METHOD 12/25/2024 12:03 PM EDT [facility] Hemoglobin 15.3 13.5 - 17.5 g/dL LAB HEMETOLOGY METHOD 12/25/2024 12:03 PM EDT [facility] Hematocrit 46.4 42.0 - 54.0 % LAB HEMETOLOGY METHOD 12/25/2024 12:03 PM EDT [facility] MCV 86.9 79.0 - 98.0 FL LAB HEMETOLOGY METHOD 12/25/2024 12:03 PM EDT [facility] MCH 28.7 27.0 - 32.0 pcg LAB HEMETOLOGY METHOD 12/25/2024 12:03 PM EDT [facility] MCHC 33.0 32.0 - 37.0 g/dL LAB HEMETOLOGY METHOD 12/25/2024 12:03 PM EDT [facility] RDW 14.3 11.0 - 15.0 % LAB HEMETOLOGY METHOD 12/25/2024 12:03 PM EDT [facility] Platelets 307 130 - 400 K/mcL LAB HEMETOLOGY METHOD 12/25/2024 12:03 PM EDT [facility] MPV 9.6 7.0 - 11.0 FL LAB HEMETOLOGY METHOD 12/25/2024 12:03 PM [facility] NRBC 0.0 <1.0 % LAB HEMETOLOGY METHOD 12/25/2024 12:03 PM [facility] NRBC Absolute 0.00 <0.10 K/mcL LAB HEMETOLOGY METHOD 12/25/2024 12:03 PM [facility] Neutrophils Relative 62.4 % LAB HEMETOLOGY METHOD 12/25/2024 12:03 PM [facility] Lymphocytes Relative 26.2 % LAB HEMETOLOGY METHOD 12/25/2024 12:03 PM [facility] Monocytes Relative 6.9 % LAB HEMETOLOGY METHOD 12/25/2024 12:03 PM [facility] Eosinophils Relative 3.3 % LAB HEMETOLOGY METHOD 12/25/2024 12:03 PM [facility] Basophils Relative 0.9 % LAB HEMETOLOGY METHOD 12/25/2024 12:03 PM [facility] Immature Granulocytes Relative 0.3 % LAB HEMETOLOGY METHOD 12/25/2024 12:03 PM [facility] Neutrophils Absolute 5.41 1.50 - 7.00 K/mcL LAB HEMETOLOGY METHOD 12/25/2024 12:03 PM [facility] Lymphocytes Absolute 2.27 1.00 - 5.00 K/mcL LAB HEMETOLOGY METHOD 12/25/2024 12:03 PM [facility] Monocytes Absolute 0.60 0.20 - 1.00 K/mcL LAB HEMETOLOGY METHOD 12/25/2024 12:03 PM [facility] Eosinophils Absolute 0.29 0.00 - 0.50 K/mcL LAB HEMETOLOGY METHOD 12/25/2024 12:03 PM [facility] Basophils Absolute 0.08 0.00 - 0.20 K/[facility] HEMETOLOGY METHOD 12/25/2024 12:03 PM EDT [facility] Immature Granulocytes Absolute 0.03 0.00 - 0.03 /[facility] LAB HEMETOLOGY METHOD 12/25/2024 12:03 PM EDT [facility] Blood Venous blood specimen / Unknown Venipuncture / Unknown 12/25/2024 10:59 AM EDT 12/25/2024 11:48 AM EDT us Liz Arthur MD LAB BLOOD ORDERABLES Final Resul t Performing Organization Address City/[facility]/ZIP Co de Phone Number [facility] [address] [place] [address], [place] [phone] * Activated partial thromboplastin time (12/25/2024 10:59 AM EDT) aPTT 33.2 24.1 - 39.3 sec LAB COAGULATION METHOD 12/25/2024 12:00 PM EDT [facility] Blood Venous blood specimen / Unknown Venipuncture / Unknown 12/25/2024 10:59 AM EDT 12/25/2024 11:48 AM EDT us Liz Arthur MD LAB BLOOD ORDERABLES Final Resul t [facility] [address] [place] [address], [place] [phone] * Prothrombin time with INR (12/25/2024 10:59 AM EDT) Protime 11.6 10.6 - 13.9 sec LAB COAGULATION METHOD 12/25/2024 12:00 PM EDT [facility] INR 0.9 LAB COAGULATION METHOD 12/25/2024 12:00 PM EDT [facility] Blood Venous blood specimen / Unknown Venipuncture / Unknown 12/25/2024 10:59 AM EDT 12/25/2024 11:48 AM EDT us Liz Arthur MD LAB BLOOD ORDERABLES Final Resul t Performing Organization Address [facility] Co de Phone Number [facility] [address] [place] [address], [place] [phone] * Type and screen (12/25/2024 10:59 AM EDT) ABO Group O 12/25/2024 1:06 PM EDT [facility] Rh Type Positive 12/25/2024 1:06 PM EDT [facility] Antibody Screen Negative 12/25/2024 1:06 PM EDT [facility] Blood Venous blood specimen / Unknown Venipuncture / Unknown 12/25/2024 10:59 AM EDT 12/25/2024 11:48 AM EDT us Liz Arthur MD LAB BLOOD BANK TEST ORDERABLES F inal Result Performing Organization Address [facility]/ZIP Ga de Phone Number [facility] [address] [place] [address], [place] [phone] * (ABNORMAL) Basic metabolic panel (12/25/2024 10:59 AM EDT) Sodium 139 133 - 145 mmol/L LAB CHEMISTRY METHOD 12/25/2024 12:17 PM EDT [facility] Potassium 3.8 3.5 - 5.5 mmol/L LAB CHEMISTRY METHOD 12/25/2024 12:17 PM EDT [facility] Chloride 106 96 - 110 mmol/L LAB CHEMISTRY METHOD 12/25/2024 12:17 PM EDT [facility] CO2 28 21 - 32 mmol/L LAB CHEMISTRY METHOD 12/25/2024 12:17 PM EDT [facility] Anion Gap 5 3 - 11 LAB CHEMISTRY METHOD 12/25/2024 12:17 PM T [facility] Glucose 124(H) 70 - 100 mg/dL LAB CHEMISTRY METHOD 12/25/2024 12:17 PM [facility] BUN 9 5 - 25 mg/dL LAB CHEMISTRY METHOD 12/25/2024 12:17 PM T [facility] Creatinine 0.85 0.70 - 1.30 mg/dL LAB CHEMISTRY METHOD 12/25/2024 12:17 PM T [facility] eGFR 109 >=60 mL/min/1. 73m2 LAB CHEMISTRY METHOD 12/25/2024 12:17 PM T [facility] Comment:Calculation based on the Chronic Kidney Disease Epidemiology Collaboration (CKD-EPI) equation refit without adjustment for race. BUN/Creatinine Ratio 10.6 LAB CHEMISTRY METHOD 12/25/2024 12:17 PM [facility] Calcium 9.0 8.5 - 10.5 mg/dL LAB CHEMISTRY METHOD 12/25/2024 12:17 PM [facility] Blood Venous blood specimen / Unknown Venipuncture / Unknown 12/25/2024 10:59 AM EDT 12/25/2024 11:48 AM EDT us Liz Arthur MD LAB BLOOD ORDERABLES Final Resul t [facility] [address] [place] [address], from Last 3 Months Insurance [employer] Care Teams Hat Copyist Relationship Specialty Start Date End Date Sami Pitt MD [address] [place] [address] Dr Robert MA PCP - General Family Medicine 01/17/24
== END 2025-01-28 13:09 | disposition home or self-care (01) ==
LOC: HO.HOS 09:55
PROVIDERS: PCP Physician Assistant; Visit Provider Physician Assistant
DX: S46.211A Strain of muscle, fascia and tendon of other parts of biceps, right arm, initial encounter (principal); S43.431A Superior glenoid labrum lesion of right shoulder, initial encounter
CPT/HCPCS: 99214; G2211

== ENCOUNTER → 2025-01-28 10:24 | Outpatient (BNV) | payer OTHER, SELFPAY | PROVIDERS: PCP Physician Assistant; Visit Provider Radiology Diagnostic Radiology | DX: M25.512 Pain in left shoulder (principal) | CPT/HCPCS: 73030 ==

== ENCOUNTER 2025-01-29 08:44 | Outpatient (AMB) | payer OTHER, SELFPAY ==
--- NOTE | 2025-01-29 08:49 | MHC.OFFVIS ---
Vital Signs 01/29/25 08:54 Height 5 ft 5 in Weight 230 lb BMI 38.3 BP 158/88 H Blood Pressure Location Rt brachial Position Sitting Pulse 78 Pulse Source Pulse Oximeter Pulse Oximetry (%) 96 Oxygen Delivery Method Room Air Intake Visit Reasons: 3 month follow up discuss Colonoscopy Intake Note: Est pt for mgmt of GERD w/ esophagitis. Discuss procedure. CC: C/O GERD persistence despite current therapies. Pt states that his sx are better than they are w/o medication, however; he still experiences persistent + moderate reflux. Transportation Refrigeration Technician Required: No Allergies bee venom protein (honey bee) Allergy (Severe, Verified 01/28/25 10:20) Anaphylaxis celecoxib (From Celebrex) Allergy (Intermediate, Verified 01/28/25 10:20) Nausea scorpion venom Allergy (Intermediate, Verified 01/28/25 10:20) Shortness of Breath adalimumab (From Humira) Allergy (Mild, Verified 01/28/25 10:20) Shortness of Breath HPI HPI 3 month follow up discuss Colonoscopy: Details: LAST VISIT GERD with esophagitis Screen for colon cancer Postprandial epigastric pain Postprandial abdominal bloating Abdominal cramping Plan Patient denies any cardiac or respiratory symptoms.? Denies any issues with anesthesia in the past.? Denies any history of sleep apnea.? No history infectious diseases in the past or present.? Not on any anticoagulation therapy.? No family or personal history of colon cancer or polyps.? Patient denies melena, hematochezia, unintentional weight loss or ribbon like stools. Patient reports severe reflux. No matter what he eats he has epigastric pain. Will send him for upper GI with barium swallow. Will check H pylori breath test, transglutaminase, lipase. Patient will start taking pantoprazole in the morning and sucralfate at bedtime. He will call us if he will have no relief. Patient was encouraged to avoid dietary triggers only 10 snacking. Staying upright for minimal 3 hours after meals discussed with patient. He will return in December so we can discuss prep. Message sent to Surgical schedules to bulk procedure for patient for beginning of January. Patient is agreeable to current plan of care and verbalizes understanding of instructions. He was given the opportunity to ask questions and all questions answered. ? Thank you for allowing me to participate in his care Orders H Pylori Breath Test Today K21.9 Transglutaminase IgA Today R10.9 Lipase Today R10.9 Transglutaminase Ab IgG Today R10.9 Vitamin D 25-OH (D2 and D3) Today E55.9 FL upper GI w air w Ba Swallow Today K21.9 New pantoprazole take one tablet half an hour before breakfast 40 mg PO DAILY 30 tabs 2RF K21.9 sucralfate 1 g PO BEDTIME 30 tabs 4RF R19.7 UPPER ENDOSCOPY AND COLONOSCOPY Findings: Larynx:normal Esophagus: GE junction at 42 cm, diaphragm hiatus at 44 cm, consistent with 2 cm sliding hiatal hernia with mild esophagitis noted at GEJ, bx taken from distal and proximal esophagus and balloon dilation done at UES and LES to 19 mm without tears seen Stomach: PAtchy erythema with erosions holly around pylorus area. Biopsies were obtained. Grade 2 flap valve on retroflexed examination of the cardia. Duodenum: bulbar duodenitis, bx taken Intervention: Biopsies as noted above, balloon dilation -no wire COLONOSCOPY Instrument: Olympus variable stiffness pediatric scope 190L--swapped to adult scope due to looping Colonoscopy Monitoring: Vital signs and clinical assessment, continuous EKG monitoring, Pulse oximetry, Carbon Dioxide monitoring and blood pressure monitoring were done throughout the procedure. Colon withdrawal time was 12 minutes. Procedure: The patient was placed in the left lateral decubitis position and pre-procedure medications were administered. After a digital rectal examination of the ano-rectum, the video colonoscope was inserted into the rectum and advanced through the colon to the cecum/TI. The colonoscope was slowly withdrawn in a retrograde panoramic fashion and the colon mucosa was carefully examined including a retroflexed view of the rectum. Findings and interventions are described below. Procedure Difficulty:moderate Findings: Terminal Ileum- erosive ileitis noted, moderate, bx taken Cecum:normal, bx taken Ascending Colon: normal, bx taken Transverse Colon -normal Descending Colon:normal Sigmoid Colon: normal, bx taken Rectum: Retroflexion with small internal hemorrhoids, grade I, bx taken Anorectum - normal Colon preparation: [place] Bowel Preparation Scale Right colon; 2 Transverse colon: 2 Left colon; 1-2 (0 = Unprepared colon segment with mucosa not seen due to solid stool that cannot be cleared. 1 = Portion of mucosa of the colon segment seen, but other areas of the colon segment not well seen due to staining, residual stool and/or opaque liquid. 2 = Minor amount of residual staining, small fragments of stool and/or opaque liquid, but mucosa of colon segment seen well. 3 = Entire mucosa of colon segment seen well with no residual staining, small fragments of stool or opaque liquid) Impression and Post Procedure Diagnosis: Endoscopy Findings: hiatal hernia erosive gastritis duodenitis esophagitis Colonoscopy Findings: erosive ileitis internal hemorrhoids Plan: Await Pathology results Repeat Colonoscopy in 3 years due to some areas of fair prep or earlier if clinically indicated High fiber diet leaflet avoid straining at stool, epsom salts and sitz bath, anusol supps or cream check nsaid hx, consider w/u for crohns PATHOLOGY RESULTS Diagnosis A. Duodenum, biopsy: Chronic inactive duodenitis. B. Stomach, biopsy: Antral-type and oxyntic mucosa with mild chronic inactive inflammation; no Helicobacter organisms seen. C. EG junction, biopsy: - Cardiac-type mucosa with moderate chronic active inflammation; no intestinal metaplasia seen. - Squamous epithelium within normal limits. D. Esophagus, distal, biopsy: Squamous epithelium within normal limits; no inflammation seen. E. Esophagus, proximal, biopsy: Squamous epithelium within normal limits; no inflammation seen. F. Terminal ileum, biopsy: Terminal ileal mucosa within normal limits. G. Colon, right, biopsy: Colonic mucosa within normal limits. H. Colon, left, biopsy: Colonic mucosa within normal limits. I. Rectum, biopsy: Rectal mucosa within normal limits. TODAY'S VISIT: Patient is here today for follow-up and to discuss upper endoscopy and colonoscopy results. Even though patient had no polyps, his prep was suboptimal and he needs to return for colonoscopy screening in 3 years. No H pylori found. Patient continues to have epigastric pain no matter what he eats. He is currently on pantoprazole. Patient reports that he is moving his bowels well. Patient denies dyspepsia, dysphagia or odynophagia. Denies melena, hematochezia, unintentional weight loss or ribbon like stools. [facility] Medical History Back pain Pulmonary nodule Rheumatoid arthritis GERD (gastroesophageal reflux disease) Osteopenia Osteoarthritis Hepatosplenomegaly Hilar lymphadenopathy Neuropathy Hyperparathyroidism HTN (hypertension) Spinal stenosis Surgical History H/O Spinal surgery Family History Father Diabetes Heart attack HTN (hypertension) Skin cancer Social History Housing: House Alcohol intake: current Alcohol intake frequency: a few times a month Patient Tobacco Use Status: Former Tobacco user Tobacco use type: Cigar Years Smoked: 32 e-Cigarette/Vaping Use: Never Used Second Hand Smoke Exposure: No Substance Use Type: Marijuana service: No Current occupational status: employed 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 Current occupational exposures/hazards: No Cognitive needs: No Hearing needs: No Vision needs: Yes (Patient wears glasses.) Review of Systems Const Denies weight gain and Denies weight loss ENT Reports no additional complaints, Denies dysphagia and Denies odynophagia Card Reports no additional complaints Resp Reports no additional complaints GI Reports abdominal pain, Denies belching, Denies melena, Reports bloating, Denies change in bowel habits, Denies dysphagia, Denies excessive flatus, Reports dyspepsia, Reports heartburn, Denies diarrhea, Denies loose stools, Denies nausea, Denies odynophagia and Denies vomiting Reports no additional complaints Musc Reports no additional complaints Neuro Reports no additional complaints Psych Reports no additional complaints Endo Reports no additional complaints Physical Exam Vital Signs: Last Vital Signs Pulse 78 01/29/25 08:54 BP 158/88 H 01/29/25 08:54 Pulse Ox 96 01/29/25 08:54 Oxygen Delivery Method Room Air 01/29/25 08:54 BMI result Body Mass Index 38.3 Const General: healthy appearing and no acute distress Nutritional Appearance: obese Orientation/consciousness: patient oriented x3 Resp Effort & Inspection: normal respiratory effort, able to speak in complete sentences, no tracheal deviation and symmetric chest movement Auscultation: clear to auscultation bilaterally Cardio Rate: regular rate GI Inspection: Yes normal to inspection, No distended and Yes obesity Palpation (GI): Soft to palpation, not firm, nontender and No hepatosplenomegaly present Auscultation: normal bowel sounds General: Yes no CVA tenderness Back/Spine/Pelvis Back: no CVA tenderness Skin General skin exam: elasticity normal, turgor normal and dry skin Neuro General: patient oriented x3 Psych Appearance: grossly normal Mental Status: mental status grossly normal Results Reviewed Results Reviewed: Laboratory Tests 10/26/24 10/26/24 01/22/25 08: 09:02 10:19 Direct Bilirubin 0.1 GGT 56 H AST 32 32 ALT 40 41 H Alkaline Phosphatase 138 H 123 H C-Reactive Protein 0.62 H Lipase 38 25-OH Vitamin D Total 29 L 22.7 L Tiss Transglutamin IgG <1.0 Tiss Transglutamin IgA <1.0 H. pylori Breath Test Negative Assessment & Plan Assessment & Plan (1) GERD with esophagitis: Code(s): K21.00 - Gastro-esophageal reflux disease with esophagitis, without bleeding Category: Medical Qualifiers: Esophagitis bleeding: without hemorrhage Qualified Code(s): K21.00 - Gastro-esophageal reflux disease with esophagitis, without bleeding (2) Postprandial epigastric pain: Code(s): R10.13 - Epigastric pain (3) Postprandial abdominal bloating: Code(s): R14.0 - Abdominal distension (gaseous) (4) Abdominal cramps: Code(s): R10.9 - Unspecified abdominal pain Plan Patient had duodenitis found on upper endoscopy also ileitis. Biopsy however did not show any possibility for Crohn's. We will order his fecal calprotectin as in the past he has increase in CRP, however patient does have rheumatoid arthritis. Denies any diarrhea or any mucus in his stool. Will order CT enterography. Patient will stop taking pantoprazole and we will start him on Nexium. He was encouraged also to avoid dietary triggers in late night snacking. Staying upright for minimum 3 hours after meals discussed with patient. Patient is agreeable to current plan of care and verbalizes understanding of instructions. He was given the to ask questions and all questions answered. Thank you for allowing me to participate in his care Orders: Orders Calprotectin, Fecal 01/29/25 R15.9 - Full incontinence of feces CT enterography 01/29/25 R19.5 - Other fecal abnormalities Medications: New esomeprazole magnesium (Nexium) 40 mg PO DAILY 30 caps 3RF K21.9 - Gastro-esophageal reflux disease without esophagitis Discontinued pantoprazole take one tablet half an hour before breakfast Discontinued Reason: Doctor's Order 40 mg PO DAILY 30 tabs 2RF K21.9 - Gastro-esophageal reflux disease without esophagitis Coding Level of Care Code Est Pt Level 4 (68584) Add On Problem Visit Only Diagnoses Gastroesophageal reflux disease with esophagitis without hemorrhage K21.00 Esophagitis bleeding: without hemorrhage Postprandial epigastric pain R10.13 Postprandial abdominal bloating R14.0 Abdominal cramps R10.9 Time Spent (min) 40 Comment 25 minutes spent with patient and additional 15 minutes spent reviewing his records
--- OUTSIDE RECORDS SUMMARY | 2025-01-29 08:53 | XMS_ITS | Clinical Summary ---
Author Organization [facility] Address [address] [place] [id number] Phone Care Team Providers Care Defensive Line Coach Name Role Phone Sami Pitt MD Primary Care Provider [phone] Allergies Active Allergy Reactions Criticality Noted Date [...] Team Description 12/25/2024 Telephone Thoracic Surgery - [address] [id number] Shannon Crum MA 12/17/2024 2:00 PM EDT Consult Thoracic Surgery - [address] [phone] Liz Arthur MD Mediastinal lymphadenopathy (Primary Dx) 12/14/2024 Telephone Thoracic Surgery - [place] [address] [phone] Gala Tavarez MA from Last [...] this topic Medical Devices Implanted Type Area Rf Technician Device Identifier Shelf Expiration Date Model / [...] GEMUSE QTc 418 ms GEMUSE P Wave [place] 55 degrees GEMUSE R [place] -3 degrees GEMUSE T [place] 18 degrees GEMUSE ECG Interpretation Normal sinus rhythm Normal ECG No previous ECGs available Confirmed by MD SANDY, FLORIDALMA ([id number]) on 12/25/2024 7:13:03 PM GEMUSE 12/25/2024 11:0 7 AM EDT 12/25/2024 7:13 PM EDT us Liz Arthur MD ECG ORDERABLES Final Result GEMUSE * Recheck blood typing (12/25/2024 10:59 AM EDT) ABO Group O 12/25/2024 1:15 PM EDT [facility] Rh Type Positive 12/25/2024 1:15 PM EDT [facility] Blood Venous blood specimen / Unknown Venipuncture / Unknown 12/25/2024 10:59 AM EDT 12/25/2024 11:48 AM EDT us Liz Arthur MD LAB BLOOD BANK TEST ORDERABLES F inal Result [facility] [address] [place] [address], [place] [phone] * CBC auto differential (12/25/2024 10:59 AM EDT) WBC 8.7 4.8 - 10.8 K/mcL LAB HEMETOLOGY METHOD 12/25/2024 12:03 PM EDT [facility] RBC 5.30 4.50 - 5.50 M/mcL LAB HEMETOLOGY METHOD 12/25/2024 12:03 PM EDT [facility] Hemoglobin 15.3 13.5 - 17.5 g/dL LAB HEMETOLOGY METHOD 12/25/2024 12:03 PM EDT [facility] Hematocrit 46.4 42.0 - 54.0 % LAB HEMETOLOGY METHOD 12/25/2024 12:03 PM EDT [facility] MCV 86.9 79.0 - 98.0 FL LAB HEMETOLOGY METHOD 12/25/2024 12:03 PM EDT [facility] MCH 28.7 27.0 - 32.0 pcg LAB HEMETOLOGY METHOD 12/25/2024 12:03 PM EDT [facility] MCHC 33.0 32.0 - 37.0 g/dL LAB HEMETOLOGY METHOD 12/25/2024 12:03 PM EDT [facility] RDW 14.3 11.0 - 15.0 % LAB HEMETOLOGY METHOD 12/25/2024 12:03 PM EDT [facility] Platelets 307 130 - 400 K/mcL LAB HEMETOLOGY METHOD 12/25/2024 12:03 PM EDT [facility] MPV 9.6 7.0 [...] 12:03 PM [facility] Basophils Absolute 0.08 0.00 - 0.20 K/[facility] LAB HEMETOLOGY METHOD 12/25/2024 12:03 PM EDT [facility] Immature Granulocytes Absolute 0.03 0.00 - 0.03 /[facility] HEMETOLOGY METHOD 12/25/2024 12:03 PM EDT [facility] Blood Venous blood specimen / Unknown Venipuncture / Unknown 12/25/2024 10:59 AM EDT 12/25/2024 11:48 AM EDT us Liz Arthur MD LAB BLOOD ORDERABLES Final Resul t Performing Organization Address City/[facility]/ZIP Co de Phone Number [facility] [address] [place] [address], [place] [phone] * Activated partial thromboplastin time (12/25/2024 10:59 AM EDT) aPTT 33.2 24.1 - 39.3 sec LAB COAGULATION METHOD 12/25/2024 12:00 PM EDT [facility] Blood Venous blood specimen / Unknown Venipuncture / Unknown 12/25/2024 10:59 AM EDT 12/25/2024 11:48 AM EDT us Liz Arthur MD LAB BLOOD ORDERABLES Final Resul t [facility] [address] [place] [address], [place] [phone] * Prothrombin time with INR (12/25/2024 10:59 AM EDT) Protime 11.6 10.6 - 13.9 sec LAB COAGULATION METHOD 12/25/2024 12:00 PM EDT [facility] INR 0.9 LAB COAGULATION METHOD 12/25/2024 12:00 PM EDT [facility] Blood Venous blood specimen / Unknown Venipuncture / Unknown 12/25/2024 10:59 AM EDT 12/25/2024 11:48 AM EDT us Liz Arthur MD LAB BLOOD ORDERABLES Final Resul t Performing Organization Address [facility] Co de Phone Number [facility] [address] [place] [address], [place] [phone] * Type and screen (12/25/2024 10:59 AM EDT) ABO Group O 12/25/2024 1:06 PM EDT [facility] Rh Type Positive 12/25/2024 1:06 PM EDT [facility] Antibody Screen Negative 12/25/2024 1:06 PM EDT [facility] Blood Venous blood specimen / Unknown Venipuncture / Unknown 12/25/2024 10:59 AM EDT 12/25/2024 11:48 AM EDT us Liz Arthur MD LAB BLOOD BANK TEST ORDERABLES F inal Result Performing Organization Address [facility]/ZIP Ia de Phone Number [facility] [address] [place] [address], [place] [phone] * (ABNORMAL) Basic metabolic panel (12/25/2024 10:59 AM EDT) Sodium 139 133 - 145 mmol/L LAB CHEMISTRY METHOD 12/25/2024 12:17 PM EDT [facility] Potassium 3.8 3.5 - 5.5 mmol/L LAB CHEMISTRY METHOD 12/25/2024 12:17 PM EDT [facility] Chloride 106 96 - 110 mmol/L LAB CHEMISTRY METHOD 12/25/2024 12:17 PM EDT [facility] CO2 28 21 - 32 mmol/L LAB CHEMISTRY METHOD 12/25/2024 12:17 PM EDT [facility] Anion Gap 5 3 - 11 LAB CHEMISTRY METHOD 12/25/2024 12:17 PM T [facility] Glucose 124(H) 70 - 100 mg/dL LAB CHEMISTRY METHOD 12/25/2024 12:17 PM [facility] BUN 9 5 - 25 mg/dL LAB CHEMISTRY METHOD 12/25/2024 12:17 PM T [facility] Creatinine 0.85 0.70 - 1.30 mg/dL LAB CHEMISTRY METHOD 12/25/2024 12:17 PM T [facility] eGFR 109 >=60 mL/min/1. 73m2 LAB CHEMISTRY METHOD 12/25/2024 12:17 PM T [facility] Comment:Calculation based on [...] MD LAB BLOOD ORDERABLES Final Resul t [facility] [address] [place] [address], from Last 3 Months Insurance [employer] Care Teams Defensive Line Coach Relationship Specialty Start Date End Date Sami Pitt MD [address] [place] [address] Dr Robert MA PCP - General Family Medicine 01/17/24
[2025-01-29 08:54] VITALS: BP 158/88; PULSE 78; O2SAT 96; BMI 38.3
== END 2025-01-29 09:15 | disposition home or self-care (01) ==
PROVIDERS: PCP Physician Assistant; Visit Provider Nurse Practitioner Family
DX: K21.00 Gastro-esophageal reflux disease with esophagitis, without bleeding (principal); R10.13 Epigastric pain; R14.0 Abdominal distension (gaseous); R10.9 Unspecified abdominal pain
CPT/HCPCS: 99214; G2211

== ENCOUNTER 2025-02-14 10:45 | Outpatient (AMB) | payer OTHER, SELFPAY ==
--- NOTE | 2025-02-14 10:51 | A.OFFVIS_ITS ---
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/ Faye Butcher/ shoulder surg 02/20/ htn/cp/ Intake Note: HEALTHCARE MARKET CONSULTANT/ Faye/Sholder surg 03/20/ Htn/ cp/sob Passenger Service Representative Required: No Accompanied by: Self / Same As Patient Allergies bee venom protein (honey bee) Allergy (Severe, Verified 01/28/25 10:20) Anaphylaxis celecoxib (From Celebrex) Allergy (Intermediate, Verified 01/28/25 10:20) Nausea scorpion venom Allergy (Intermediate, Verified 01/28/25 10:20) Shortness of Breath adalimumab (From Humira) Allergy (Mild, Verified 01/28/25 10:20) Shortness of Breath Medication List - Last Reconciled 02/14/25 by Seymour Lee MD albuterol sulfate 90 mcg/actuation 2 puffs inhalation Q4-6H PRN 30 days amlodipine 5 mg PO DAILY ergocalciferol (vitamin D2) 1,250 mcg PO QWEEK esomeprazole magnesium (Nexium) 40 mg PO DAILY fluticasone propion-salmeterol 250-50 mcg/dose (Wixela Inhub) 1 inh inhalation Q12H oxycodone 10 mg PO Q6H 28 days sulfasalazine 1 g (2 x 500 mg) PO BID triamcinolone acetonide 0.1% 1 appl topical BID HPI Comments Details: [age] year gentleman with multiple medical issues presenting for chest pain. He has background history of Crohn's disease on sulfasalazine, rheumatoid arthritis, hypertension, history of tobacco abuse currently smoking marijuana and biceps tendon injury and shoulder labrum tear. He is in need of surgery and is following with orthopedics. He has been getting sharp chest pains since [place]. He said he was [place] when while walking he had sharp chest pains and shortness of breath. This lasted for 15 minutes. Since then with exertion he gets the same sharp chest pain in the center of the chest. He is unable to describe whether it is pleuritic or not. He is clear that it happens with exercise. There is no relationship to food intake as he has known history of gastroesophageal reflux disease. He is a former smoker but has been smoking marijuana now. He has significant joint issues and has diagnosis of rheumatoid arthritis and will be seeing addictions therapist at [facility]. Strong family history of coronary disease with father getting IN in his 50s. [facility] Medical History Back pain Pulmonary nodule Rheumatoid arthritis GERD (gastroesophageal reflux disease) Osteopenia Osteoarthritis Hepatosplenomegaly Hilar lymphadenopathy Neuropathy Hyperparathyroidism HTN (hypertension) Spinal stenosis Surgical History H/O Spinal surgery Family History Father Diabetes Heart attack HTN (hypertension) Skin cancer Social History Housing: House Alcohol intake: current Alcohol intake frequency: a few times a month Patient Tobacco Use Status: Former Tobacco user Tobacco use type: Cigar Years Smoked: 32 e-Cigarette/Vaping Use: Never Used Second Hand Smoke Exposure: No Substance Use Type: Marijuana service: No Current occupational status: employed 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 Current occupational exposures/hazards: No Cognitive needs: No Hearing needs: No Vision needs: Yes (Patient wears glasses.) Review of Systems Const Denies chills, Denies fatigue, Denies fever(s), Denies frequent falls, Denies weakness, Denies weight gain and Denies weight loss ENT Denies dizziness Card Reports chest pain, Reports chest pain with activity, Denies leg edema, Denies lightheadedness, Denies palpitations, Reports dyspnea, Reports dyspnea on exertion and Reports orthopnea Resp Denies cough, Reports dyspnea and Reports dyspnea on exertion GI Denies bloating and Denies change in bowel habits Musc Denies muscle weakness, Denies numbness and Denies tingling Neuro Denies dizziness, Denies frequent falls, Denies numbness, Denies tingling and Denies weakness Endo Denies fatigue and Denies palpitations Physical Exam Vital Signs: Last Vital Signs Pulse 87 02/14/25 10:54 BP 136/72 02/14/25 10:54 BMI result Body Mass Index 38.1 GENERAL APPEARANCE: in no acute distress, pleasant. NECK: no carotid bruit, no jugular venous distention. SKIN: no suspicious lesions, warm and dry. HEART: no murmurs, regular rate and rhythm. LUNGS: clear to auscultation bilaterally. ABDOMEN: soft, nontender. EXTREMITIES: no edema. PERIPHERAL PULSES: equal. NEUROLOGIC: No gross deficits, AAO X 3 Office Procedures EKG Details: Sinus rhythm 87 beats per minute, normal axis, normal EKG, QTC 435 milliseconds. [id number], Complete Assessment & Plan Assessment & Plan (1) HTN (hypertension): Code(s): I10 - Essential (primary) hypertension Category: Medical (2) Chest pain: Code(s): R07.9 - Chest pain, unspecified Category: Medical (3) Family history of IN (myocardial infarction): Code(s): Z82.49 - Family history of ischemic heart disease and other diseases of the circulatory system Category: Medical (4) Preop cardiovascular exam: Code(s): Z01.810 - Encounter for preprocedural cardiovascular examination Category: Medical Plan [age] year gentleman with history of hypertension, tobacco use currently smoking marijuana, pulmonary nodule, Crohn's disease and rheumatoid arthritis presenting for chest pain. Chest pains are sharp and happen with exertion. Clinical story is not consistent with pericarditis. He has risk factors for coronary artery disease and has strong family history of coronary disease. He already has been set up for stress MIBI which I think would be helpful. Agree with echocardiography. As he gets the testing done we can reassess him. If he can do more than 4 metabolic equivalents on treadmill then he is not high-risk for surgery. Obviously if his stress testing is abnormal then he may need angiography and revascularization given ongoing symptoms and I have explained to him that this may delay his surgery by 3-6 months depending on how complex the issue is. Same medications for now. Blood pressure control is good. Thank you for allowing me to participate in the care of your patient. Please feel free to contact me if you have any questions. Coding Level of Care Code New Pt Level 4 (75761) Diagnoses HTN (hypertension) I10 Chest pain R07.9 Family history of IN (myocardial infarction) Z82.49 Preop cardiovascular exam Z01.810 CPT Codes EKG - CPT: 99477-[id number], Complete ([id number])
[2025-02-14 10:54] VITALS: BP 136/72; PULSE 87; BMI 38.1
--- OUTSIDE RECORDS SUMMARY | 2025-02-14 13:45 | XMS_ITS | Clinical Summary ---
Author Organization [facility] Address [address] [place] [id number] Phone Care Team Providers Care Metal Caster Name Role Phone Sami Pitt MD Primary [...] Team Description 12/25/2024 Telephone Thoracic Surgery - [address] [phone] Shannon Crum MA 12/17/2024 2:00 PM EDT Consult Thoracic Surgery - [address] [phone] Liz Arthur MD Mediastinal lymphadenopathy (Primary Dx) 12/14/2024 Telephone Thoracic Surgery - [place] [address] [id number] Gala Tavarez MA from Last 3 Months [...] Orientation Straight 01/17/2024 6: 46 AM EST Last Filed Vital Signs Vital Sign Reading [...] this topic Medical Devices Implanted Type Area Nephrology Nurse Device Identifier Shelf Expiration Date Model / [...] GEMUSE QTc 418 ms GEMUSE P Wave [place] 55 degrees GEMUSE R [place] -3 degrees GEMUSE T [place] 18 degrees GEMUSE ECG Interpretation Normal sinus rhythm Normal ECG No previous ECGs available Confirmed by MD SANDY, FLORIDALMA ([id number]) on 12/25/2024 7:13:03 PM GEMUSE 12/25/2024 11:0 7 AM EDT 12/25/2024 7:13 PM EDT us Liz Arthur MD ECG ORDERABLES Final Result GEMUSE * Recheck blood typing (12/25/2024 10:59 AM EDT) ABO Group O 12/25/2024 1:15 PM EDT [facility] Rh Type Positive 12/25/2024 1:15 PM EDT [facility] Blood Venous blood specimen / Unknown Venipuncture / Unknown 12/25/2024 10:59 AM EDT 12/25/2024 11:48 AM EDT us Liz Arthur MD LAB BLOOD BANK TEST ORDERABLES F inal Result [facility] [address] [place] [address], [place] [phone] * CBC auto differential (12/25/2024 10:59 AM EDT) WBC 8.7 4.8 - 10.8 K/mcL LAB HEMETOLOGY METHOD 12/25/2024 12:03 PM EDT [facility] RBC 5.30 4.50 - 5.50 M/mcL LAB HEMETOLOGY METHOD 12/25/2024 12:03 PM EDT [facility] Hemoglobin 15.3 13.5 - 17.5 g/dL LAB HEMETOLOGY METHOD 12/25/2024 12:03 PM EDT [facility] Hematocrit 46.4 42.0 - 54.0 % LAB HEMETOLOGY METHOD 12/25/2024 12:03 PM EDT [facility] MCV 86.9 79.0 - 98.0 FL LAB HEMETOLOGY METHOD 12/25/2024 12:03 PM EDT [facility] MCH 28.7 27.0 - 32.0 pcg LAB HEMETOLOGY METHOD 12/25/2024 12:03 PM EDT [facility] MCHC 33.0 32.0 - 37.0 g/dL LAB HEMETOLOGY METHOD 12/25/2024 12:03 PM EDT [facility] RDW 14.3 11.0 - 15.0 % LAB HEMETOLOGY METHOD 12/25/2024 12:03 PM [facility] Platelets 307 130 - 400 K/mcL LAB HEMETOLOGY METHOD 12/25/2024 12:03 PM EDT [facility] MPV 9.6 7.0 - 11.0 FL LAB HEMETOLOGY METHOD 12/25/2024 12:03 PM [facility] NRBC 0.0 <1.0 % LAB HEMETOLOGY METHOD 12/25/2024 12:03 PM [facility] NRBC Absolute 0.00 <0.10 K/mcL LAB HEMETOLOGY METHOD 12/25/2024 12:03 PM [facility] Neutrophils Relative 62.4 % LAB HEMETOLOGY METHOD 12/25/2024 12:03 PM [facility] Lymphocytes Relative 26.2 % LAB HEMETOLOGY METHOD 12/25/2024 12:03 PM [facility] Monocytes Relative 6.9 % LAB HEMETOLOGY METHOD 12/25/2024 12:03 PM [facility] Eosinophils Relative 3.3 % LAB HEMETOLOGY METHOD 12/25/2024 12:03 PM [facility] Basophils Relative 0.9 % LAB HEMETOLOGY METHOD 12/25/2024 12:03 PM [facility] Immature Granulocytes Relative 0.3 % LAB HEMETOLOGY METHOD 12/25/2024 12:03 PM [facility] Neutrophils Absolute 5.41 1.50 - 7.00 K/mcL LAB HEMETOLOGY METHOD 12/25/2024 12:03 PM [facility] Lymphocytes Absolute 2.27 1.00 - 5.00 K/mcL LAB HEMETOLOGY METHOD 12/25/2024 12:03 PM [facility] Monocytes Absolute 0.60 0.20 - 1.00 K/mcL LAB HEMETOLOGY METHOD 12/25/2024 12:03 PM [facility] Eosinophils Absolute 0.29 0.00 - 0.50 K/mcL LAB HEMETOLOGY METHOD 12/25/2024 12:03 PM [facility] Basophils Absolute 0.08 0.00 - 0.20 K/[facility] LAB HEMETOLOGY METHOD 12/25/2024 12:03 PM EDT [facility] Immature Granulocytes Absolute 0.03 0.00 - 0.03 K/[facility] LAB HEMETOLOGY METHOD 12/25/2024 12:03 PM EDT [facility] Blood Venous blood specimen / Unknown Venipuncture / Unknown 12/25/2024 10:59 AM EDT 12/25/2024 11:48 AM EDT us Liz Arthur MD LAB BLOOD ORDERABLES Final Resul t Performing Organization Address City/[facility]/ZIP Co de Phone Number [facility] [address] [place] [address], [place] [phone] * Activated partial thromboplastin time (12/25/2024 10:59 AM EDT) aPTT 33.2 24.1 - 39.3 sec LAB COAGULATION METHOD 12/25/2024 12:00 PM EDT [facility] Blood Venous blood specimen / Unknown Venipuncture / Unknown 12/25/2024 10:59 AM EDT 12/25/2024 11:48 AM EDT us Liz Arthur MD LAB BLOOD ORDERABLES Final Resul t [facility] [address] [place] [address], [place] [phone] * Prothrombin time with INR (12/25/2024 10:59 AM EDT) Protime 11.6 10.6 - 13.9 sec LAB COAGULATION METHOD 12/25/2024 12:00 PM EDT [facility] INR 0.9 LAB COAGULATION METHOD 12/25/2024 12:00 PM EDT [facility] Blood Venous blood specimen / Unknown Venipuncture / Unknown 12/25/2024 10:59 AM EDT 12/25/2024 11:48 AM EDT us Liz Arthur MD LAB BLOOD ORDERABLES Final Resul t Performing Organization Address [facility] de Phone Number [facility] [address] [place] [address], [place] [phone] * Type and screen (12/25/2024 10:59 AM EDT) ABO Group O 12/25/2024 1:06 PM EDT [facility] Rh Type Positive 12/25/2024 1:06 PM EDT [facility] Antibody Screen Negative 12/25/2024 1:06 PM EDT [facility] Blood Venous blood specimen / Unknown Venipuncture / Unknown 12/25/2024 10:59 AM EDT 12/25/2024 11:48 AM EDT us Liz Arthur MD LAB BLOOD BANK TEST ORDERABLES F inal Result Performing Organization Address [facility]/ZIP Nh de Phone Number [facility] [address] [place] [address], [place] [phone] * (ABNORMAL) Basic metabolic panel (12/25/2024 10:59 AM EDT) Sodium 139 133 - 145 mmol/L LAB CHEMISTRY METHOD 12/25/2024 12:17 PM EDT [facility] Potassium 3.8 3.5 - 5.5 mmol/L LAB CHEMISTRY METHOD 12/25/2024 12:17 PM EDT [facility] Chloride 106 96 - 110 mmol/L LAB CHEMISTRY METHOD 12/25/2024 12:17 PM EDT [facility] CO2 28 21 - 32 mmol/L LAB CHEMISTRY METHOD 12/25/2024 12:17 PM EDT [facility] Anion Gap 5 3 - 11 LAB CHEMISTRY METHOD 12/25/2024 12:17 PM [facility] Glucose 124(H) 70 - 100 mg/dL LAB CHEMISTRY METHOD 12/25/2024 12:17 PM [facility] BUN 9 5 - 25 mg/dL LAB CHEMISTRY METHOD 12/25/2024 12:17 PM [facility] Creatinine 0.85 0.70 - 1.30 mg/dL LAB CHEMISTRY METHOD 12/25/2024 12:17 PM [facility] eGFR 109 >=60 mL/min/1. 73m2 LAB CHEMISTRY METHOD 12/25/2024 12:17 PM [facility] Comment:Calculation based on the Chronic Kidney Disease Epidemiology Collaboration (CKD-EPI) equation refit without adjustment for race. BUN/Creatinine Ratio 10.6 LAB CHEMISTRY METHOD 12/25/2024 12:17 PM [facility] Calcium 9.0 8.5 - 10.5 mg/dL LAB CHEMISTRY METHOD 12/25/2024 12:17 PM [facility] Blood Venous blood specimen / Unknown Venipuncture / Unknown 12/25/2024 10:59 AM EDT 12/25/2024 11:48 AM EDT us Liz Arthur MD LAB BLOOD ORDERABLES Final Resul t [facility] [address] [place] [address], from Last 3 Months Insurance [employer] Care Teams Metal Caster Relationship Specialty Start Date End Date Sami Pitt MD [address] [place] [address] Dr Robert MA PCP - General Family Medicine 01/17/24
== END 2025-02-14 11:22 | disposition home or self-care (01) ==
LOC: HO.HCS 10:46
PROVIDERS: PCP Physician Assistant; Visit Provider Internal Medicine Cardiovascular Disease
DX: I10 Essential (primary) hypertension (principal); R07.9 Chest pain, unspecified; Z82.49 Family history of ischemic heart disease and other diseases of the circulatory system; Z01.810 Encounter for preprocedural cardiovascular examination
CPT/HCPCS: 93010; 99204

== ENCOUNTER → 2025-02-14 10:45 | Outpatient (BNVA) | payer OTHER, SELFPAY | PROVIDERS: PCP Physician Assistant; Visit Provider Internal Medicine Cardiovascular Disease | DX: Z01.810 Encounter for preprocedural cardiovascular examination (principal); R07.9 Chest pain, unspecified; I10 Essential (primary) hypertension; Z82.49 Family history of ischemic heart disease and other diseases of the circulatory system | CPT/HCPCS: 93005 ==